=== PATIENT | female | born 1960 | race African-American/Black ===

== ENCOUNTER → 2017-06-30 | Outpatient (CLI) | payer OTHER ==
[2017-06-30 11:10] LABS: BASO % 0 % (0-3); EOS # 0.2 x10^3/uL (0.0-0.7); EOS % 2 % (0-3); HEMOGLOBIN 14.1 g/dL (12.0-15.5); LYMPH % 21 % (24-48); MEAN CORPUSCULAR HEMOGLOBIN 32 pg (25-35); MEAN CORPUSCULAR HGB CONC 34 g/dL (31-37); MEAN CORPUSCULAR VOLUME 93 fL (79-100); MONO # 0.4 x10^3/uL (0.0-1.1); MONO % 5 % (0-9); NEUT # 6.6 x10^3uL (1.8-7.7); NEUT % 71 % (31-73); PLATELET COUNT 215 x10^3/uL (140-400); RED BLOOD COUNT 4.43 x10^6/uL (3.50-5.40); RED CELL DISTRIBUTION WIDTH 14.1 % (11.5-14.5); WHITE BLOOD COUNT 9.3 x10^3/uL (4.0-11.0)
[2017-06-30 11:34] LABS: ALBUMIN 3.6 g/dL (3.4-5.0); ALBUMIN/GLOBULIN RATIO 0.9 (1.0-1.7); CALCIUM 8.6 mg/dL (8.5-10.1); CREATININE 0.7 mg/dL (0.6-1.0); GFR 105.1; POTASSIUM 3.8 mmol/L (3.5-5.1); TOTAL BILIRUBIN 0.5 mg/dL (0.2-1.0); TOTAL PROTEIN 7.4 g/dL (6.4-8.2)
--- NOTE | 2017-06-30 14:46 | RAD ---
EXAM: Lumbar spine, 5 views. HISTORY: Pain. COMPARISON: None. FINDINGS: Frontal, lateral, bilateral oblique and coned sacral views of the lumbar spine are obtained. There is minimal grade 1 anterolisthesis of L4 on L5, measuring 2 mm. There is minimal endplate remodeling and facet arthropathy at multiple levels. There is no fracture. IMPRESSION: 1. Minimal degenerative change within the lumbar spine area 2. No acute finding. Electronically signed by: Blank Jain MD (06/30/2017 2:43 PM) [facility]
[2017-07-01 02:08] LABS: HEMOGLOBIN A1C 7.1 % (4.8-5.6)
== END | disposition home or self-care (01) ==
LOC: DXRAD 10:24
PROVIDERS: ATTEND Family Medicine
DX: M12.88 Other specific arthropathies, not elsewhere classified, other specified site (principal); I10 Essential (primary) hypertension; E11.42 Type 2 diabetes mellitus with diabetic polyneuropathy
CPT/HCPCS: 36415; 72110; 80053; 83036; 84443; 85025

== ENCOUNTER 2018-09-07 11:48 | Emergency (ER) | payer OTHER ==
[2018-09-07 12:12] VITALS: BP 137/90
[2018-09-07] MEDS ORDERED: IPRATRPIUM/ALBUTEROL 0.5/2.5MG 3 ML NEBU. NEB ONE (12:30)
--- NOTE | 2018-09-07 12:32 | RAD ---
Chest, PA and Lateral: Technique: PA and lateral views of the chest were obtained. History: Cough, shortness of breath. Comparison: 10/16/2012. Findings: Mild cardiomegaly. Mild bibasilar lung airspace opacities likely atelectasis or infiltrates. Minimal prominent bilateral interstitial lung markings. IMPRESSION: 1. Minimal congestive changes. 2. Mild bibasilar lung airspace opacities likely atelectasis or infiltrates. Electronically signed by: Scotty Prajapati MD (09/07/2018 12:29 PM) [facility]
[2018-09-07] MEDS ORDERED: METH4TAB2 PO (13:02)
[2018-09-07] MEDS ORDERED: HYDR115S2 PO (13:02)
[2018-09-07] MEDS ORDERED: ALBU2.5V8 INH (13:02)
[2018-09-07] MEDS ORDERED: AZIT250T PO (13:02)
--- NOTE | 2018-09-07 13:02 | PHYS DOC ---
Past History Past Medical History: Diabetes, Hypertension Past Surgical History: Cholecystectomy Alcohol Use: None Drug Use: None Adult General Chief Complaint Chief Complaint: MULTIPLE COMPLAINTS HPI HPI Patient is a 58 year old female who presents with complaining of cough and sore throat and headache. Patient complaining of chronic headache for 2 months and was seen by her primary care physician and had a CT of head today with pending results. Patient complaining of nonproductive cough for 2 weeks with nasal congestion and sore throat and feeling pressure in her anterior side of her neck without fever, posterior neck pain, chest pain. Patient complaining of shortness of breath and muscle pain. Patient is a smoker. Patient states her diagnosed with pneumonia 2 weeks ago. Review of Systems Review of Systems Constitutional: Denies fever or chills [] Eyes: Denies change in visual acuity, redness, or eye pain [] HENT: Reports nasal congestion and sore throat Respiratory: Reports cough and shortness of breath Cardiovascular: No additional information not addressed in HPI [] GI: Denies abdominal pain, nausea, vomiting, bloody stools or diarrhea [] : Denies dysuria or hematuria [] Musculoskeletal: Denies back pain or joint pain [] Integument: Denies rash or skin lesions [] Neurologic: Reports headache, denies focal weakness or sensory changes [] Endocrine: Denies polyuria or polydipsia [] All other systems were reviewed and found to be within normal limits, except as documented in this note. Current Medications Current Medications Current Medications Medications (Trade) Dose Ordered Sig/Niurka Start Time Stop Time Status Last Admin Dose Admin Albuterol/ Ipratropium (Duoneb) 3 ml 1X ONCE 09/07/18 12:30 09/07/18 12:31 DC 09/07/18 12:46 3 ML Allergies Allergies Allergies Uncoded Allergies Type Severity Reaction Last Updated Verified contrast Allergy Mild 09/07/18 Physical Exam Physical Exam Constitutional: Well developed, well nourished, mild distress, non-toxic appearance. [] HENT: Normocephalic, atraumatic, bilateral external ears normal, oropharynx moist, no oral exudates, nose normal. [] Eyes: PERRLA, EOMI, conjunctiva normal, no discharge. [] Neck: Normal range of motion, no tenderness, supple, no stridor. [] Cardiovascular:Heart rate regular rhythm, no murmur [] Lungs & Thorax: Bilateral breath sounds clear to auscultation [] Abdomen: Bowel sounds normal, soft, no tenderness, no masses, no pulsatile masses. [] Skin: Warm, dry, no erythema, no rash. [] Back: No tenderness, no CVA tenderness. [] Extremities: No tenderness, no cyanosis, no clubbing, ROM intact, no edema. [] Neurologic: Alert and oriented X 3, normal motor function, normal sensory function, no focal deficits noted. [] Psychologic: Affect normal, judgement normal, mood normal. [] Current Patient Data Vital Signs Vital Signs Date Time Temp Pulse Resp B/P (MAP) Pulse Ox O2 Delivery O2 Flow Rate FiO2 09/07/18 12:47 96 Room Air 09/07/18 12:12 98.6 72 18 Lab Results Laboratory Tests Test 09/07/18 12:41 Glucose (Fingerstick) 74 mg/dL (70-99) EKG EKG [] Radiology/Procedures Radiology/[place] [address] IMAGING REPORT Signed PATIENT: OMID CHO ACCOUNT: [id number] : 1960 LOCATION: ER AGE: 58 SEX: F EXAM STATUS: REG ER ORD. PHYSICIAN: PATRICK HENDERSON MD REASON: cough and shortness of breath PROCEDURE: CHEST PA & LATERAL Chest, PA and Lateral: Technique: PA and lateral views of the chest were obtained. History: Cough, shortness of breath. Comparison: 10/16/2012. Findings: Mild cardiomegaly. Mild bibasilar lung airspace opacities likely atelectasis or infiltrates. Minimal prominent bilateral interstitial lung markings. IMPRESSION: 1. Minimal congestive changes. 2. Mild bibasilar lung airspace opacities likely atelectasis or infiltrates. Electronically signed by: Scotty Prajapati MD (09/07/2018 12:29 PM) [facility] DICTATED AND SIGNED BY: SCOTTY PRAJAPATI MD DATE: 09/07/18 [id number] CC: PATRICK HENDERSON MD; JAROD URBINA MD ~ Course & Med Decision Making Course & Med Decision Making Pertinent Labs and Imaging studies reviewed. (See chart for details) Evaluation of patient in ER showed 58-year-old female patient with complaining of URI symptoms for 2 weeks and chronic headache. Patient did was evaluated by her primary care physician for chronic headache and had a CT of her head. Also had Graves' disease without new changes. Patient had blood sugar of 74 and chest x-ray showed possible infiltration. Patient treated with DuoNeb in ER and felt better. Plan discharge patient home with diagnose of bronchitis and early pneumonia. Patient was advised to follow-up with her primary care physician for chronic headache and Graves' disease. Patient was advised to quit smoking. Dragon Disclaimer Dragon Disclaimer This electronic medical record was generated, in whole or in part, using a voice recognition dictation system. Departure Departure: Impression: Primary Impression: Bronchitis Additional Impressions: Tobacco abuse Tobacco abuse counseling Disposition: HOME, SELF-CARE (at 1301) Condition: IMPROVED Referrals: JAROD URBINA MD (PCP) Patient Instructions: Acute Bronchitis, Pneumonia, Adult, Smoking Cessation, Tips For Success Additional Instructions: Drink plenty of liquids Follow-up with your primary care physician in 3-5 days Return to ER if not getting better Scripts Azithromycin (ZITHROMAX) 250 Mg Tablet 1 PKG PO UD for infection, #1 PKG Prov: PATRICK HENDERSON MD 09/07/18 Hydrocodone/Chlorphen P-Stirex (Tussionex Pennkinetic Susp) 115 Ml Valery.er.12h 5 ML PO BID for cough and congestion, #60 ML Prov: PATRICK HENDERSON MD 09/07/18 Albuterol Sulfate (PROAIR HFA INHALER) 8.5 Gm Hfa.aer.ad 2 PUFF INH PRN Q6HRS PRN for SHORTNESS OF BREATH, #1 INHALER 0 Refills Prov: PATRICK HENDERSON MD 09/07/18 Methylprednisolone (MEDROL) 4 Mg Tab.ds.pk 1 PKG PO UD for inflammation, #1 PKG Prov: PATRICK HENDERSON MD 09/07/18 Problem Qualifiers PATRICK HENDERSON MD Sep 07, 2018 13:02
== END 2018-09-07 13:08 | disposition home or self-care (01) ==
LOC: ER 11:48
DX: J40 Bronchitis, not specified as acute or chronic (principal); E11.9 Type 2 diabetes mellitus without complications; I10 Essential (primary) hypertension; Z72.0 Tobacco use; Z71.6 Tobacco abuse counseling; Z91.041 Radiographic dye allergy status
CPT/HCPCS: 71046; 82947; 94640; 99285; J7620

== ENCOUNTER → 2018-09-07 | Outpatient (CLI) | payer OTHER ==
[~2018-09-07] MED LIST: ALBU2.5V8 INH; AZIT250T PO; HYDR115S2 PO; METH4TAB2 PO
--- NOTE | 2018-09-07 12:38 | RAD ---
CT HEAD INDICATION: Headache COMPARISON: 10/16/2012 Exposure: One or more of the following individualized dose reduction techniques were utilized for this examination: 1. Automated exposure control 2. Adjustment of the mA and/or kV according to patient size 3. Use of iterative reconstruction technique TECHNIQUE: 5 mm contiguous axial images were obtained from the skull base to the vertex in both bone and soft tissue algorithm. FINDINGS: No abnormal attenuation within the brain parenchyma. No evidence of acute intracranial hemorrhage. No extra-axial fluid collections. No mass effect or midline shift. Ventricular size is appropriate. Basal cisterns are patent. No fractures identified.Beltre-white differentiation is preserved.Globes and orbits are within normal limits. Paranasal sinuses and mastoid air cells are clear. IMPRESSION: No acute intracranial findings. Electronically signed by: Scotty Prajapati MD (09/07/2018 12:36 PM) [facility]
== END | disposition home or self-care (01) ==
LOC: CT 11:30
PROVIDERS: ATTEND Family Medicine
DX: R51 Headache (principal)
CPT/HCPCS: 70450

== ENCOUNTER → 2018-12-13 | Outpatient (CLI) | payer MEDICAID ==
--- NOTE | 2018-12-13 15:05 | RAD ---
DATE: 12/13/2018. EXAM: DIGITAL SCREEN BILAT W/CAD. HISTORY: Routine mammographic screening. COMPARISON: 03/21/2014. This study was interpreted with the benefit of Computerized Aided Detection (CAD). FINDINGS: Breast Density: SCATTERED The breast parenchyma shows scattered fibroglandular densities. Breast parenchyma level B.. A nodule laterally on the right has stable correlate study back in 2014. Scattered and coarse calcifications are benign. There are no suspicious masses, microcalcifications or architectural distortion. BI-RADS CATEGORY: 2 BENIGN FINDING(S). RECOMMENDED FOLLOW-UP: 12M 12 MONTH FOLLOW-UP. PQRS compliance statement: Patient information was entered into a reminder system with a target due date 12/14/2019 for the next mammogram. Mammography is a sensitive method for finding small breast cancers, but it does not detect them all and is not a substitute for careful clinical examination. A negative mammogram does not negate a clinically suspicious finding and should not result in delay in biopsying a clinically suspicious abnormality. "Our facility is accredited by the [employer] Mammography Program."
== END | disposition home or self-care (01) ==
LOC: MAMMO 13:14
PROVIDERS: ATTEND Family Medicine
DX: Z12.31 Encounter for screening mammogram for malignant neoplasm of breast (principal); N64.89 Other specified disorders of breast
CPT/HCPCS: 77067

== ENCOUNTER → 2019-01-05 | Outpatient (CLI) | payer MEDICAID ==
--- NOTE | 2019-01-05 10:06 | RAD ---
CHEST PA LATERAL History: Chest congestion and cough Findings: The cardiomediastinal silhouette is normal. Pulmonary vasculature is normal. The lungs are clear. No pleural effusion or pneumothorax is seen. There is no acute bone abnormality. Upper abdominal surgical clips are present. IMPRESSION: No acute cardiopulmonary process. Electronically signed by: Issa Muniz MD (01/05/2019 10:03 AM) [facility]
== END | disposition home or self-care (01) ==
LOC: PMG 09:37
PROVIDERS: ATTEND Physician Assistant Medical
DX: R09.89 Other specified symptoms and signs involving the circulatory and respiratory systems (principal)
CPT/HCPCS: 71046

== ENCOUNTER → 2020-06-12 | Outpatient (CLI) | payer MEDICAID ==
--- NOTE | 2020-06-12 18:04 | CARD ---
MR#: [id number] Date of Study: 06/12/2020 Ordering Physician: SHANAE BATES, Referring Physician: SHANAE BATES, Tech: Elena Chin MANGO APPROVED REPORT EXAM: Two-dimensional and M-mode echocardiogram with Doppler and color Doppler. Other Information Quality : Good INDICATION Hypertension/HCVD 2D DIMENSIONS RVDd2.7 (2.9-3.5cm)Left Atrium(2D)3.1 (1.6-4.0cm) IVSd1.0 (0.7-1.1cm)Aortic Root(2D)2.5 (2.0-3.7cm) LVDd4.1 (3.9-5.9cm)LVOT Diameter2.2 (1.8-2.4cm) PWd1.1 (0.7-1.1cm)LVDs2.5 (2.5-4.0cm) FS (%) 30.0 %SV51.1 ml LVEF(%)60.0 (>50%) Aortic Valve AoV Peak Everette.120.5cm/sAoV VTI22.8cm AO Peak GR.5.8mmHgLVOT Peak Everette.92.8cm/s LVOT VTI 16.79cmAO Mean GR.3mmHg SHAUN (VMAX)2.63hb0KVI (VTI)2.68cm2 Mitral Valve MV E Yjkfzbiq40.5cm/sMV E Peak Gr.4mmHg MV DECEL ADRN391srEM A Vhthwlhn89.7cm/s MV E Mean Gr.2mmHgE/A Ratio0.7 Tricuspid Valve TR P. Vgopnrmm858jw/sRAP JCCONUAC9xxNw TR Peak Gr.48hbIxVSDI07uxDy Pulmonary Vein S1 Xyxmyrzk83.0cm/sD2 Vrinkgiq66.0cm/s LEFT VENTRICLE The left ventricle is normal size. There is normal left ventricular wall thickness. The left ventricu lar systolic function is normal and the ejection fraction is within normal range. The Ejection Fracti on is 55-60%. There is normal LV segmental wall motion. Transmitral Doppler flow pattern is Grade I-a bnormal relaxation pattern. RIGHT VENTRICLE The right ventricle is normal size. The right ventricular systolic function is normal. ATRIA The left atrium size is normal. The right atrium size is normal. The interatrial septum is intact wit h no evidence for an atrial septal defect or patent foramen ovale as noted on 2-D or Doppler imaging. AORTIC VALVE The aortic valve is normal in structure and function. Doppler and Color Flow revealed no significant aortic regurgitation. There is no significant aortic valvular stenosis. MITRAL VALVE The mitral valve is calcified but opens well. There is no evidence of mitral valve prolapse. There is no mitral valve stenosis. Doppler and Color Flow revealed no mitral valve regurgitation noted. TRICUSPID VALVE The tricuspid valve is normal in structure and function. Doppler and Color Flow revealed trace tricus pid regurgitation. The PA pressure was estimated at 34 mmHg. There is no tricuspid valve stenosis. PULMONIC VALVE The pulmonic valve is not well visualized. Doppler and Color Flow revealed trace pulmonic valvular re gurgitation. There is no pulmonic valvular stenosis. GREAT VESSELS The aortic root is normal in size. The ascending aorta is normal in size. The IVC is normal in size a nd collapses >50% with inspiration. PERICARDIAL EFFUSION There is no evidence of significant pericardial effusion. Critical Notification Critical Value: No <Conclusion> The left ventricular systolic function is normal and the ejection fraction is within normal range. Th e Ejection Fraction is 55-60%. There is normal LV segmental wall motion. Doppler and Color Flow revealed trace tricuspid regurgitation. The PA pressure was estimated at 34 mm Hg. Signed by : Shanae Bates, Electronically Approved : 06/12/2020 18:03:44
== END ==
LOC: ECHO 08:27
PROVIDERS: ATTEND Internal Medicine Cardiovascular Disease
DX: I34.0 Nonrheumatic mitral (valve) insufficiency (principal)
CPT/HCPCS: 93306

== ENCOUNTER → 2020-06-12 | Outpatient (CLI) | payer MEDICAID ==
[~2020-06-12] MED LIST changes: +REGADENOSON 0.4 MG/5 ML DISP.SYRIN. IV ONE
--- NOTE | 2020-06-13 10:53 | RAD ---
MR#: [id number] Date of Study: 06/12/2020 Ordering Physician: SHANAE BATES, Referring Physician: KUSHAL HERNANDEZ Tech: RT Marsha (R) (N) APPROVED REPORT Test Type: Pharmacological Stress Nurse/Tech: AARON/RONN Test Indications: CHEST PAIN Cardiac History: No known cardiac Medications: SEE EHR Resting Heart Rate: 79 bpm Resting Blood Pressure: 135/77mmHg Pretest Chest Pain: No chest pain Pharm. Details Pharmacologic stress testing was performed using 0.4mg per 5ml of regadenoson given intravenously ove r 7-10 seconds. Stress Symptoms DYSPNEA POST EXERCISE Reason for Termination: Infusion complete Max HR: 87 bpm Max Blood Pressure: 142/77mmHg Blood Pressure response to exercise: Normal blood pressure response during stress. Heart Rate response to exercise: NORMAL Arrhythmia: No. ST Change: No. INTERPRETATION Stress EKG Conclusion: No evidence of stress induced EKG changes. Imaging Protocol IMAGE PROTOCOL: Rest Tc-99m/stress Tc-99m 1 day Rest: Stress: Viability: Radiopharm.Tc99m LxqldkcacSh88o Sestamibi Ycwe48wRb 10mCi Duration 15min. 15min. Img Date 06/12/2020 06/12/2020 Inj-Img Sqhq15qjs. 50min. Rest Admin Site:IV - Left WristAdministrator: RT Marsha (R)(N) Stress Admin Site: IV - Left WristAdministrator: RT Marsha (R)(N) STRESS DATA End Diast. Vol.74.0mlAv. Heart Rate79.0bpm End Syst. Vol.15.0mlCO Index BSA0.0L/min Myocardial Rgyh402.0gEject. Uolmrhmu90.0% Stress Rates Pk. Fill Rate2.75EDV/secLVtime Pk. Fill 174.43msec Pk. Empty Rate4.06ESV/secLVtime Pk. Zjoyq991.97msec 02/25 Pk. Fill1.45EDV/sec Stress Scores Regional WT0.00Summed WT1.00 Regional WM0.00Summed WM1.00 The rest and stress images show normal perfusion, normal contraction and thickening. LV Perf. Quant 17 Seg. SSS3.00 17 Seg. SRS0.00 17 Seg. SDS3.00 Stress Defect Extent (% LAD)0.00Rest Defect Extent (% LAD)0.00Rev. Defect Extent (% LAD)0.00 Stress Defect Extent (% LCX) 23.80Rest Defect Extent (% LCX)8.80Rev. Defect Extent (% LCX)6.30 Stress Defect Extent (% RCA)0.00Rest Defect Extent (% RCA)0.00Rev. Defect Extent (% RCA)0.00 Stress Defect Extent (% ELAINE)4.10Rest Defect Extent (% ELAINE)1.50Rev. Defect Extent (% ELAINE)1.10 Other Information Quality:Average Risk Assessment: Low Risk Conclusion 1. No evidence of EKG changes with stress testing. 2. Normal perfusion at stress/rest. 3. Low risk study. 4. EF > 60%. Signed by : Shanae Bates, Electronically Approved : 06/13/2020 10:52:48
== END ==
LOC: NM 08:05
PROVIDERS: ATTEND Internal Medicine Cardiovascular Disease
DX: I10 Essential (primary) hypertension (principal); R07.9 Chest pain, unspecified
CPT/HCPCS: 78452; 93017; A9500; J2785

== ENCOUNTER 2020-09-06 15:38 | Observation (INO) | payer MEDICAID ==
[~2020-09-06] VITALS: Ht 162.6 cm; Wt 91.6 kg
[~2020-09-06 15:38] MED LIST changes: -REGADENOSON 0.4 MG/5 ML DISP.SYRIN. IV ONE
[2020-09-06] MEDS ORDERED: ASPIRIN CHEWABLE 81 MG TABLET. PO ONE (16:15)
[2020-09-06] MEDS ORDERED: IV NORMAL SALINE 1,000ML 1,000 ML IV SCH (16:45)
[2020-09-06] MEDS: MORPHINE SULFATE 4 MG/ML DISP.SYRIN. IV/SQ PRN ×2 (16:47→18:15)
--- NOTE | 2020-09-06 16:53 | RAD ---
EXAMINATION: XR CHEST 1V CLINICAL HISTORY: Chest pain EXAM DATE/TIME: 09/06/2020 4:41 PM COMPARISON: 01/05/2019 FINDINGS: Lines, Tubes, and Devices: None. Cardiomediastinal Silhouette: Within normal limits. Lungs and Pleura: No evidence of focal airspace consolidation or pleural effusion. Pulmonary vasculat ure unremarkable. Bones and Soft Tissues: Degenerative changes of the thoracic spine. IMPRESSION: No evidence of acute cardiopulmonary abnormality or significant interval change. Electronically signed by: Rufus Maciel DO (09/06/2020 4:50 PM) [id number]
[2020-09-06 17:07] LABS: BASO % 0 % (0-3); EOS # 0.1 x10^3/uL (0.0-0.7); EOS % 2 % (0-3); HEMATOCRIT 38.6 % (36.0-47.0); LYMPH # 1.8 x10^3/uL (1.0-4.8); LYMPH % 30 % (24-48); MEAN CORPUSCULAR HEMOGLOBIN 30 pg (25-35); MEAN CORPUSCULAR HGB CONC 34 g/dL (31-37); MEAN CORPUSCULAR VOLUME 90 fL (79-100); MONO # 0.6 x10^3/uL (0.0-1.1); MONO % 11 % (0-9); NEUT # 3.5 x10^3uL (1.8-7.7); NEUT % 58 % (31-73); PLATELET COUNT 169 x10^3/uL (140-400); RED BLOOD COUNT 4.27 x10^6/uL (3.50-5.40); RED CELL DISTRIBUTION WIDTH 12.5 % (11.5-14.5); WHITE BLOOD COUNT 6.1 x10^3/uL (4.0-11.0)
[2020-09-06 17:26] LABS: ALBUMIN 3.4 g/dL (3.4-5.0); ALBUMIN/GLOBULIN RATIO 1.2 (1.0-1.7); ALK PHOS 130 U/L (46-116); ALT (SGPT) 120 U/L (14-59); ANION GAP 10 (6-14); AST (SGOT) 80 U/L (15-37); BLOOD UREA NITROGEN 29 mg/dL (7-20); BUN/CREATININE RATIO 29 (6-20); CALCIUM 9.2 mg/dL (8.5-10.1); CARBON DIOXIDE 26 mmol/L (21-32); CHLORIDE 103 mmol/L (98-107); GFR 68.7; LIPASE 31 U/L (73-393); MAGNESIUM 1.8 mg/dL (1.8-2.4); POTASSIUM 4.6 mmol/L (3.5-5.1); SODIUM 139 mmol/L (136-145); TOTAL BILIRUBIN 0.9 mg/dL (0.2-1.0); TOTAL PROTEIN 6.3 g/dL (6.4-8.2)
[2020-09-06 17:39] LABS: GLUCOSE 501 mg/dL (70-99)
[2020-09-06] MEDS ORDERED: IV NORMAL SALINE 1,000ML 1,000 ML IV ONE (17:45)
--- NOTE | 2020-09-06 18:21 | PHYS DOC ---
Past History Past Medical History: Diabetes, Hypertension (ROLANDO AMOS APRN) Past Surgical History: Cholecystectomy (ROLANDO AMOS APRN) Alcohol Use: None Drug Use: None (ROLANDO AMOS APRN) General Adult EDM: Chief Complaint: CHEST PAIN HPI: HPI: Patient is a 60-year-old female who presents with chest pain since last Thursday. Patient states that the pain has been coming and going. Patient describes pain as sharp, stabbing pain that also radiates to her neck. Patient does report shortness of breath, nausea and sweating when symptoms occur. Patient also reports that her blood sugar has been high for the last week. Patient states she has been taking her insulin as prescribed. Patient denies anything making pain worse or better. Patient states a couple years ago she had the same symptoms and was seen by a blow torch operator. Echo and stress test were negative at that time. Patient has a history of anxiety, diabetes, hypertension, COPD, hyperlipidemia. (ROLANDO AMOS APRN) Review of Systems: Review of Systems: Constitutional: Denies fever or chills Eyes: Denies change in visual acuity HENT: Denies nasal congestion or sore throat Respiratory: Denies cough. Reports shortness of breath Cardiovascular: Reports chest pain GI: Denies abdominal pain. Reports nausea and vomiting : Denies dysuria Musculoskeletal: Denies back pain or joint pain Integument: Denies rash Neurologic: Denies headache, focal weakness or sensory changes Endocrine: Denies polyuria or polydipsia Lymphatic: Denies swollen glands Psychiatric: Denies history of anxiety (ROLANDO AMOS APRN) Current Medications: Current Meds: Current Medications Medications (Trade) Dose Ordered Sig/Niurka Start Time Stop Time Status Last Admin Dose Admin Aspirin (Aspirin Chewable) 324 mg 1X ONCE 09/06/20 16:15 09/06/20 16:19 DC 09/06/20 16:46 324 MG Morphine Sulfate (Morphine 4mg Syringe) 4 mg PRN Q15MIN PRN 09/06/20 16:45 09/07/20 16:44 09/06/20 16:47 4 MG Sodium Chloride 1,000 ml @ 1,000 mls/hr 1X ONCE 09/06/20 17:45 09/06/20 18:44 (ROLANDO AMOS APRN) Allergies: Allergies: Allergies Uncoded Allergies Type Severity Reaction Last Updated Verified contrast Allergy Mild 09/07/18 (ROLANDO AMOS [employer] M[employer]ER) Physical Exam: PE: Constitutional: Well developed, well nourished, no acute distress, non-toxic appearance. [] HENT: Normocephalic, atraumatic, bilateral external ears normal, oropharynx moist, no oral exudates, nose normal. [] Eyes: PERRLA, EOMI, conjunctiva normal, no discharge. [] Neck: Normal range of motion, no tenderness, supple, no stridor. [] Cardiovascular:Heart rate regular rhythm, no murmur [] Lungs & Thorax: Bilateral breath sounds clear to auscultation [] Abdomen: Bowel sounds normal, soft, no tenderness, no masses, no pulsatile masses. [] Skin: Warm, dry, no erythema, no rash. [] Back: No tenderness, no CVA tenderness. [] Extremities: No tenderness, no cyanosis, no clubbing, ROM intact, no edema. [] Neurologic: Alert and oriented X 3, normal motor function, normal sensory function, no focal deficits noted. [] Psychologic: Patient appears anxious and tearful (ROLANDO AMOS [employer]) Current Patient Data: Labs: Laboratory Tests Test 09/06/20 16:07 White Blood Count 6.1 x10^3/uL (4.0-11.0) Red Blood Count 4.27 x10^6/uL (3.50-5.40) Hemoglobin 13.0 g/dL (12.0-15.5) Hematocrit 38.6 % (36.0-47.0) Mean Corpuscular Volume 90 fL (79-100) Mean Corpuscular Hemoglobin 30 pg (25-35) Mean Corpuscular Hemoglobin Concent 34 g/dL (31-37) Red Cell Distribution Width 12.5 % (11.5-14.5) Platelet Count 169 x10^3/uL (140-400) Neutrophils (%) (Auto) 58 % (31-73) Lymphocytes (%) (Auto) 30 % (24-48) Monocytes (%) (Auto) 11 % (0-9) H Eosinophils (%) (Auto) 2 % (0-3) Basophils (%) (Auto) 0 % (0-3) Neutrophils # (Auto) 3.5 x10^3uL (1.8-7.7) Lymphocytes # (Auto) 1.8 x10^3/uL (1.0-4.8) Monocytes # (Auto) 0.6 x10^3/uL (0.0-1.1) Eosinophils # (Auto) 0.1 x10^3/uL (0.0-0.7) Basophils # (Auto) 0.0 x10^3/uL (0.0-0.2) Sodium Level 139 mmol/L (136-145) Potassium Level 4.6 mmol/L (3.5-5.1) Chloride Level 103 mmol/L (98-107) Carbon Dioxide Level 26 mmol/L (21-32) Anion Gap 10 (6-14) Blood Urea Nitrogen 29 mg/dL (7-20) H Creatinine 1.0 mg/dL (0.6-1.0) Estimated GFR (Cockcroft-Gault) 68.7 BUN/Creatinine Ratio 29 (6-20) H Glucose Level 501 mg/dL (70-99) *H Calcium Level 9.2 mg/dL (8.5-10.1) Magnesium Level 1.8 mg/dL (1.8-2.4) Total Bilirubin 0.9 mg/dL (0.2-1.0) Aspartate Amino Transferase (AST) 80 U/L (15-37) H Alanine Aminotransferase (ALT) 120 U/L (14-59) H Alkaline Phosphatase 130 U/L (46-116) H Creatine Kinase 57 U/L (26-192) Creatine Kinase MB (Mass) < 0.5 ng/mL (0.0-3.6) Creatine Kinase MB Relative Index 0.9 % (0-4) Troponin I Quantitative < 0.017 ng/mL (0-0.055) JA-Kxh-T-Type Natriuretic Peptide 114 pg/mL (0-124) Total Protein 6.3 g/dL (6.4-8.2) L Albumin 3.4 g/dL (3.4-5.0) Albumin/Globulin Ratio 1.2 (1.0-1.7) Lipase 31 U/L (73-393) L Vital Signs: Vital Signs Date Time Temp Pulse Resp B/P (MAP) Pulse Ox O2 Delivery O2 Flow Rate FiO2 09/06/20 16:49 98 16 116/65 (82) 98 Room Air 09/06/20 15:54 98.4 (ROLANDO AMOS APRN) EKG: EKG: Sinus tachycardia. Heart rate [address] elevation. Read by Dr. Mosher. [] (ROLANDO AMOS APRN) Radiology/Procedures: Radiology/Procedures: [] (ROLANDO AMOS APRN) Heart Score: C/O Chest Pain: Yes HEART Score for Chest Pain: HEART Score for Chest Pain Response (Comments) Value History Moderately Suspicious 1 ECG Normal 0 Age >45 - < 65 1 Risk Factors >3 Risk Factors or Hx CAD 2 Total 4 Risk Factors: Risk Factors: DM, Current or recent (<one month) smoker, HTN, HLP, family history of CAD, obesity. Risk Scores: Score 0 - 3: 2.5% MACE over next 6 weeks - Discharge Home Score 4 - 6: 20.3% MACE over next 6 weeks - Admit for Clinical Observation Score 7 - 10: 72.7% MACE over next 6 weeks - Early Invasive Strategies (ROLANDO AMOS APRN) Course & Med Decision Making: Course & Med Decision Making Pertinent Labs and Imaging studies reviewed. (See chart for details) [] 60-year-old female presents with chest pain since last Thursday. Pain has been intermittent. Pain is described as a sharp and stabbing pain that radiates to her neck. Patient is also reported some shortness of breath along with nausea and vomiting. Patient was given 4 mg of morphine, 4 mg of Zofran, and 324 of aspirin. EKG showed sinus tachycardia, 102 bpm. Troponin is negative. Heart score of 4. Blood sugar 507. Anion gap is 10. Patient states that she has been taking her insulin as prescribed but having issues this week with it being elevated. Patient given 2 L of normal saline bolus. Patient blood sugar decreased to 422 on reassessment. Discussed results with patient and explained that she would need to be admitted for observation . Patient is very tearful and anxious but agrees with admission plan. Patient has a history of anxiety and normally takes lorazepam at home. Patient denies needing anything at this time. I spoke with Dr. Barlow who will accepting patient for observation for chest pain and hyperglycemia. Patient given GI cocktail, 4 mg of Zofran, 1 of Ativan. Patient is still tearful and anxious. (ROLANDO AMOS APRN) Dragon Disclaimer: Dragon Disclaimer: This electronic medical record was generated, in whole or in part, using a voice recognition dictation system. (ROLANDO AMOS APRN) Departure Departure: Impression: Primary Impression: Chest pain Qualified Codes: R07.89 - Other chest pain Additional Impression: Hyperglycemia Disposition: ADMITTED INPATIENT Admitting Physician: Susan Barlow (ROLANDO AMOS APRN) Condition: GOOD Referrals: JAROD URBINA MD (PCP) Scripts Methimazole (TAPAZOLE) 10 Mg Tablet 1 TAB PO BID PRN for HYROTOXICOSIS for 30 Days, #60 TAB 5 Refills Prov: SUSAN BARLOW MD 09/08/20 Attending Signature Attending Signature I have participated in the care of this patient and I have reviewed and agree with all pertinent clinical information above including history, exam, and recommendations. (MARVIN VELA MD) ROLANDO AMOS APRN Sep 06, 2020 18:20 MARVIN VELA MD Sep 13, 2020 06:52
[2020-09-06 18:39] LABS: BARBITURATES NEG (NEG); BENZODIAZEPINES NEG (NEG); CANNABINOIDS NEG (NEG); COCAINE NEG (NEG); METHADONE NEG (NEG); OPIATES POS (NEG); PHENCYCLIDINE NEG (NEG)
[2020-09-06 18:51] LABS: AMPHETAMINE/METHAMPHETAMINE NEG (NEG)
[2020-09-06 19:13] LABS: BACTERIA,URINE 0 /HPF (0-FEW); BILIRUBIN,URINE NEG (NEG); CLARITY,URINE CLEAR; COLOR,URINE YELLOW; GLUCOSE,URINE >=1000 mg/dL (NEG); NITRITE,URINE NEG (NEG); RBC,URINE 0 /HPF (0-2); SQUAMOUS EPITHELIAL CELL,UR OCC /LPF; UROBILINOGEN,URINE 0.2 mg/dL (0.2 mg/dL); WBC,URINE RARE /HPF (0-4)
[2020-09-06] MEDS ORDERED: ONDANSETRON PF 4 MG/2 ML VIAL. IVP ONE (20:15)
[2020-09-06] MEDS ORDERED: LIDO:MAALOX 1:1 20 ML SINGLE DOSE. PO ONE (20:15)
[2020-09-06] MEDS ORDERED: DEXTROSE 50% 25 GM / 50ML DISP.SYRIN. IV PRN (21:15)
[2020-09-06] MEDS ORDERED: LORazepam 0.5 MG TABLET PO PRN (21:15)
[2020-09-06 21:28] VITALS: BP 115/71
[2020-09-06] MEDS ORDERED: INSULIN GLARGINE SYRINGE. SQ SCH (21:30)
[2020-09-06] MEDS ORDERED: INSULIN GLARGINE SYRINGE. SQ ONE (21:45)
[2020-09-06] MEDS: MORPHINE SULFATE 4 MG/ML DISP.SYRIN. IV PRN (21:52)
[2020-09-06] MEDS: ZOLPIDEM 5 MG TABLET. PO PRN (22:00)
--- NOTE | 2020-09-06 23:30 | NUR ---
PT ADMITTED RM 111 VIA EMS ACCOMPANIED BY ER STAFF. PT AMBULATED FROM GURNEY TO BED INDEPENDENTLY. PT AOX4. PT HAD COMPLAINTS OF PAIN RATING 7/10 ON NUMERIC LEVEL. PT IS UNABLE TO PROVIDE HOME MEDICATION LIST AT THIS TIME. PER PT [facility] WILL BE CALLED TO OBTAIN MEDICATION LIST. DR SHERIDAN CALLED. ORDERS RECEIVED. PT RESTING COMFORTABLY IN BED W/ CALL LIGHT IN REACH.
[2020-09-07] MEDS: MORPHINE SULFATE 4 MG/ML DISP.SYRIN. IV PRN ×5 (02:43→22:07)
[2020-09-07] MEDS: ONDANSETRON PF 4 MG/2 ML VIAL. IVP PRN ×2 (02:43→18:13)
[2020-09-07] MEDS ORDERED: ONDANSETRON PF 4 MG/2 ML VIAL. IVP PRN (02:45)
[2020-09-07 05:57] VITALS: BP 134/75
--- NOTE | 2020-09-07 06:40 | EKG ---
[address] [address] Test Date: 2020-09-06 Test Time: 15:45:24 Pat Name: OMID CHO Department: Room: Gender: F Communications Field Technician: : 1960 Requested By: ROLANDO AMOS Order Number: [id number] Reading MD: Measurements Intervals [place] Rate: 102 P: 36 UT: 158 QRS: -26 QRSD: 82 T: 41 QT: 348 QTc: 458 Interpretive Statements SINUS TACHYCARDIA LEFTWARD AXIS OTHERWISE NORMAL ECG RI6.02 No previous ECG available for comparison
--- NOTE | 2020-09-07 06:49 | EKG ---
[address] [address] Test Date: 2020-09-06 Test Time: 17:13:18 Pat Name: OMID CHO Department: Room: Gender: F Chaperone: : 1960 Requested By: ROLANDO AMOS Order Number: [id number] Reading MD: Measurements Intervals [place] Rate: 75 P: 38 [place]: 158 QRS: -13 QRSD: 98 T: 5 QT: 392 QTc: 440 Interpretive Statements SINUS RHYTHM LEFTWARD AXIS OTHERWISE NORMAL ECG RI6.01 No previous ECG available for comparison
[2020-09-07] MEDS: INSULIN LISPRO 300 UNITS/3 ML VIAL. SQ SCH ×3 (08:33→17:18)
[2020-09-07 10:47] VITALS: BP 102/65
[2020-09-07] MEDS: ACETAMINOPHEN 325 MG TABLET PO PRN (11:35)
[2020-09-07] MEDS ORDERED: PANT20TA4 PO (11:49)
[2020-09-07] MEDS ORDERED: PROC10TA2 PO (11:49)
[2020-09-07] MEDS ORDERED: LORA-434 PO (11:49)
[2020-09-07] MEDS ORDERED: IBUP800T19 PO (11:49)
[2020-09-07] MEDS ORDERED: ZOLP5TAB5 PO (11:49)
[2020-09-07] MEDS ORDERED: AMLO-187 PO (11:49)
[2020-09-07] MEDS ORDERED: CHOL500021 PO (11:49)
[2020-09-07] MEDS ORDERED: ATEN100T PO (11:49)
[2020-09-07] MEDS ORDERED: ALBU6.7H8 INH (11:49)
[2020-09-07] MEDS ORDERED: LOSA100T14 PO (11:49)
[2020-09-07] MEDS ORDERED: ATOR20TA58 PO (11:49)
[2020-09-07] MEDS ORDERED: INSU100I46 SQ (11:49)
[2020-09-07] MEDS ORDERED: INSU100I11 SQ (11:49)
[2020-09-07] MEDS ORDERED: TRAM50TA PO (11:49)
--- NOTE | 2020-09-07 11:59 | NUR ---
nursing note pt unsure of all her meds, called kelle, meds entered per kelle, pt given list from kelle and verified with pt, pt states "yes, that is correct". meds are up to date per pt/kelle. sharlene melara.
[2020-09-07] MEDS ORDERED: ALBUTEROL SULFATE 8GM INHALER. INH PRN (12:15)
[2020-09-07] MEDS ORDERED: traMADol 50 MG TABLET PO PRN ×2 (12:15→13:30)
[2020-09-07] MEDS ORDERED: LORazepam 1 MG TABLET PO PRN (12:15)
[2020-09-07] MEDS ORDERED: IBUPROFEN 800 MG TABLET. PO PRN (12:15)
[2020-09-07 12:36] LABS: HEMATOCRIT 36.7 % (36.0-47.0); HEMOGLOBIN 12.3 g/dL (12.0-15.5); RED BLOOD COUNT 4.09 x10^6/uL (3.50-5.40); RED CELL DISTRIBUTION WIDTH 12.2 % (11.5-14.5); WHITE BLOOD COUNT 6.9 x10^3/uL (4.0-11.0)
[2020-09-07] MEDS ORDERED: INSU100I13 SQ (12:41)
[2020-09-07] MEDS ORDERED: ALBUTEROL SULFATE 2.5 MG/3 ML NEBU. NEB PRN (12:45)
[2020-09-07 12:58] LABS: ALBUMIN/GLOBULIN RATIO 1.1 (1.0-1.7); C REACTIVE PROTEIN 2.2 mg/L (0-3.3); CALCIUM 8.8 mg/dL (8.5-10.1); CREATININE 0.6 mg/dL (0.6-1.0); GFR 123.8; POTASSIUM 4.4 mmol/L (3.5-5.1); TOTAL BILIRUBIN 0.6 mg/dL (0.2-1.0); TOTAL PROTEIN 5.8 g/dL (6.4-8.2)
[2020-09-07] MEDS: amLODIPine BESYLATE 10 MG TABLET PO SCH (13:00)
[2020-09-07] MEDS: LOSARTAN 50 MG TABLET. PO SCH (13:00)
[2020-09-07] MEDS: ATENOLOL 50 MG TABLET PO SCH (13:13)
[2020-09-07] MEDS: ATORVASTATIN CALCIUM 20 MG TABLET PO SCH (13:13)
--- NOTE | 2020-09-07 14:03 | HP ---
HISTORY OF PRESENT ILLNESS: The patient is a 60-year-old -Hungarian female, who presented to the Emergency Room of [facility] with generalized weakness started last Thursday. She also complained of a chest pain, mostly on the left side that comes and goes, she rated about 9/10 associated with some nausea and diaphoresis, but no radiation and no shortness of breath. She also complained of nausea and vomiting, diarrhea and abdominal pain, and also has some fever this morning up to 102. She also stated that her blood sugar has been fully controlled despite the fact that she has been on the same dose of Lantus 30 units twice a day and Humalog 5 units three times before meals. The patient stated that exertion in particular is not making her chest pain worse as she has been very weak, unable to do things that she used to do before. She was evaluated in the Emergency Room and has had lab work and imaging studies. Her lab work other than marked elevated blood sugar and elevated liver enzymes, were normal. Her PT, INR and APTT were normal. Urinalysis was essentially unremarkable and her toxic screen was positive for opiates, but negative for all other medications. Her chest x-ray showed her cardiomediastinal silhouette within normal limits. Lungs and pleura, no evidence of focal airspace consolidation, pleural effusion, pulmonary vasculature is unremarkable, bone and soft tissue has degenerative changes at the thoracic spine. Her first set of cardiac enzymes showed troponin to be less than 0.017. The patient was admitted to do two more sets of cardiac enzymes, check fasting lipid profile and to consult the fire equipment operator. PAST MEDICAL HISTORY: Her past medical history is significant for type 2 diabetes mellitus; hypertension; hyperlipidemia; chronic obstructive pulmonary disease; Graves' disease, treated with methimazole and she was followed by Endocrinology team at ____, and her methimazole was discontinued 2 years ago. She also has generalized osteoarthritis. PAST SURGICAL HISTORY: Significant for cholecystectomy. ALLERGIES: SHE IS ALLERGIC TO IODINATED CONTRAST AND DYE. MEDICATIONS: She is on Lantus insulin 30 units twice a day and Humalog insulin 5 units three times a day before meals. We are calling [facility] to find out her other medications. FAMILY HISTORY: She has five sisters and two brothers, they are generally healthy. Her father at age of 75 because of the chronic lymphatic leukemia and mother with complications of end-stage renal disease. SOCIAL HISTORY: She is , has no children. Smokes about half a pack a day. Does not drink alcohol or use any drugs. REVIEW OF SYSTEMS: The patient denied any blurring of vision, cataract, glaucoma or macular degeneration. Denied any earache, tinnitus or sensorineural deafness. Denied any nosebleed, stuffy nose or postnasal drip. Denied any sore throat, sore tongue, toothache, hoarseness of voice or difficulty swallowing. Did complain of nausea and vomiting. Did complain also of diarrhea, but denied any hematemesis, melena or hematochezia. Denied any dysuria, frequency or hematuria. Did complain of a chest pain, but denied any shortness of breath. Denied any orthopnea or paroxysmal nocturnal dyspnea. Before last Thursday, the patient was believed to be without any assistance or assistive devices. PHYSICAL EXAMINATION: GENERAL: On arrival to the Emergency Room, there was no pallor, jaundice, cyanosis, or thyromegaly. No jugular venous distention. No limb edema. VITAL SIGNS: Her heart rate was 100, blood pressure is 107/55, temperature was 98.4, respiratory rate 16, and oxygen saturation was 100% on room air. HEAD, EYES, EARS, NOSE, AND THROAT: Normocephalic, atraumatic. NECK: Supple. HEART: Showed normal first and second heart sounds, no gallop, rub or murmur. CHEST: Clear to auscultation, no crepitation or rhonchi. ABDOMEN: Distended, soft, nontender. NEUROLOGIC: She is awake, alert, responding appropriately. All her cranial nerves are intact. She moves all extremities without difficulty. She ambulates without assistance or assistive devices. LABORATORY DATA: Her lab work on arrival showed a white cell count 6100, hemoglobin 13, hematocrit 38, MCV 90 and platelet count of 169,000 with normal manual differential. Her chemistry showed a serum sodium 139, potassium 4.6, chloride 103, bicarbonate 26, anion gap of 10, BUN 29, creatinine of 1. Estimated GFR was 68.7. Her blood sugar was 500. Her calcium was 9.2, magnesium was 1.8. Total bilirubin is normal. AST, ALT, alkaline phosphatase are all elevated. Her CK was 57. First set of cardiac enzymes showed troponin to be less than 0.017. Her brain natriuretic peptide was only 114. Total protein was 6.3, albumin was 3.4 and lipase was 31. Her prothrombin time, INR and APTT were all normal. Urinalysis showed urine was yellow, clear with a pH of 5.5 and ____. The urine was negative for protein. There was large amounts of glucose. The urine was negative for ketones, blood, nitrites and leukocyte esterase. There are no rbc's, no wbc's, and no bacteria. Her toxic screen was positive for opiates, but negative for methadone, barbiturates, phencyclidine, amphetamine, methamphetamine, benzodiazepine, cocaine and cannabinoids. Her chest x-ray show that there is no evidence of acute cardiopulmonary abnormality or significant interval change. ASSESSMENT AND PLAN: The patient was admitted to do two more sets of cardiac enzymes, although the chest pain seems somewhat atypical. We will check her fasting lipid profile, consult the fire equipment operator. I would also contact her indigo vat tender cloth and contact also Dr. Chery to see if the lab work done there were become available as I believe that he probably have this check there for thyroid function test. SAMINA/DEE/DEQUAN DR: SAMINA/shaila TID: [id number]
[2020-09-07 15:36] VITALS: BP 122/70
[2020-09-07 19:36] VITALS: BP 123/75
[2020-09-07] MEDS ORDERED: ZOLPIDEM 5 MG TABLET. PO SCH (21:00)
[2020-09-07] MEDS ORDERED: PROCHLORPERAZINE 5 MG TABLET. PO SCH (21:00)
[2020-09-07] MEDS: INSULIN GLARGINE SYRINGE. SQ SCH (21:36)
[2020-09-07] MEDS: ZOLPIDEM 5 MG TABLET. PO PRN (23:12)
[2020-09-07 23:30] VITALS: BP 137/78
[2020-09-08] MEDS: ONDANSETRON PF 4 MG/2 ML VIAL. IVP PRN ×3 (00:43→12:14)
--- NOTE | 2020-09-08 05:39 | NUR ---
Pt slept off and on last night. She was feeling warm toward the beginning of the shift, then had chills about 2130. A warm blanket was given. She was teary and in pain and requested morphine when next dose was available. About an hour later pt awoke vomiting, multiple times. Zofran was given. Pt rested the remainder of the night.
[2020-09-08 06:21] VITALS: BP 110/68
[2020-09-08] MEDS ORDERED: PANTOPRAZOLE 40 MG TABLET. PO SCH (07:30)
[2020-09-08] MEDS: ATORVASTATIN CALCIUM 20 MG TABLET PO SCH (08:00)
[2020-09-08] MEDS: ATENOLOL 50 MG TABLET PO SCH (08:00)
[2020-09-08] MEDS: LOSARTAN 50 MG TABLET. PO SCH (08:01)
[2020-09-08] MEDS: amLODIPine BESYLATE 10 MG TABLET PO SCH (08:01)
[2020-09-08] MEDS: MORPHINE SULFATE 4 MG/ML DISP.SYRIN. IV PRN ×2 (08:01→12:16)
[2020-09-08] MEDS: ACETAMINOPHEN 325 MG TABLET PO PRN (08:03)
[2020-09-08] MEDS: INSULIN LISPRO 300 UNITS/3 ML VIAL. SQ SCH ×3 (08:11→17:44)
[2020-09-08] MEDS: INSULIN GLARGINE SYRINGE. SQ SCH (09:00)
[2020-09-08 10:41] VITALS: BP 122/76
[2020-09-08 14:18] VITALS: BP 120/66
--- NOTE | 2020-09-08 15:26 | RAD ---
CT ABDOMEN+PELVIS WO History: Severe right flank pain. Comparison: None. Technique: Noncontrast CT of the abdomen and pelvis. Findings: Bibasilar atelectasis. Normal heart size. No pericardial or pleural effusion. The liver is unremarkable. Cholecystectomy changes with mild prominence of the common bile duct, 1 cm . Atrophy of the pancreas. Normal spleen. 1.3 cm nodule in the medial limb of the left adrenal consis tent with adenoma. No nephrolithiasis or hydronephrosis. Trace bilateral perinephric fat stranding. No ureterolithiasis. The bladder is unremarkable. Stomach, small bowel, appendix, and colon are unremarkable. No abdominal pelvic adenopathy. Mild aortic calcification. Uterus and adnexa are unremarkable. No osiris e fluid. Soft tissues are unremarkable. No acute osseous abnormalities. Impression: 1. No acute findings in the abdomen and pelvis. 2. Left adrenal 1.3 cm adenoma. Recommend clinical and laboratory correlation for functioning adenom a. ------ Exposure: One or more of the following individualized dose reduction techniques were utilized for thi s examination: 1. Automated exposure control 2. Adjustment of the mA and/or kV according to patient size 3. Use of iterative reconstruction technique. Electronically signed by: Josue Keating MD (09/08/2020 3:24 PM) [id number]
[2020-09-08 16:52] LABS: BASO % 0 % (0-3); EOS # 0.1 x10^3/uL (0.0-0.7); EOS % 2 % (0-3); HEMATOCRIT 37.1 % (36.0-47.0); HEMOGLOBIN 12.6 g/dL (12.0-15.5); LYMPH # 2.1 x10^3/uL (1.0-4.8); LYMPH % 35 % (24-48); MEAN CORPUSCULAR HEMOGLOBIN 30 pg (25-35); MEAN CORPUSCULAR HGB CONC 34 g/dL (31-37); MEAN CORPUSCULAR VOLUME 89 fL (79-100); MONO # 0.6 x10^3/uL (0.0-1.1); MONO % 10 % (0-9); NEUT # 3.2 x10^3uL (1.8-7.7); NEUT % 53 % (31-73); PLATELET COUNT 137 x10^3/uL (140-400); RED BLOOD COUNT 4.19 x10^6/uL (3.50-5.40); RED CELL DISTRIBUTION WIDTH 12.3 % (11.5-14.5)
[2020-09-08 17:10] LABS: CALCIUM 9.1 mg/dL (8.5-10.1); CREATININE 0.6 mg/dL (0.6-1.0); GFR 123.8; POTASSIUM 4.4 mmol/L (3.5-5.1)
[2020-09-08 17:18] LABS: ALBUMIN/GLOBULIN RATIO 0.9 (1.0-1.7); TOTAL PROTEIN 6.4 g/dL (6.4-8.2)
[2020-09-08] MEDS ORDERED: INSULIN LISPRO 300 UNITS/3 ML VIAL. SQ ONE (18:00)
[2020-09-08] MEDS ORDERED: METH-184 PO (18:25)
--- NOTE | 2020-09-08 18:36 | NUR ---
Discharge Note: OMID CHO Discharge instructions and discharge home medications reviewed with Patient and a copy given. All questions have been answered and understanding verbalized. The following instructions and handouts were given: Discontinued lines and drains: Peripheral IV intact. Patient discharged to Home or Self Care with nursing staff via Wheelchair
--- NOTE | 2020-09-09 02:48 | DS ---
DATE OF DISCHARGE: 09/08/2020 HOSPITAL COURSE: The patient is a 60-year-old -[place]an female patient who was admitted through the Emergency Room with a complaint of generalized weakness, chest pain. She also has some nausea, diaphoresis. She did complain of some nausea, vomiting. Her temperature was up to 102. Her blood sugar has not been well controlled despite the fact that she has been on the same dose for Lantus 30 units twice a day and Humalog 5 units 3 times before. The chest pain is not worsened by exertion. She apparently has been complaining ____ with these complaints and was seen by her primary care physician who ordered some lab work and I contacted Dr. Chery's office and basically all her lab works were within normal limit except slightly elevated liver enzymes; however, her T3, T4, and free T4 are elevated and TSH is almost undetectable. I spoke with her assembly manager at [facility] who recommended starting her methimazole 10 mg twice a day as she is known to have thyrotoxicosis due to Graves' disease and she has been on antithyroid medication for long time. They were discontinued about 2 years ago. She has also lost weight and I explained to the patient that her symptoms will take some time to improve and that she should start taking her antithyroid medication. Her blood sugar was not suboptimally controlled and she need to talk to her primary care physician and the assembly manager also to adjust her insulin. PHYSICAL EXAMINATION: GENERAL: When I saw her this afternoon, she was sitting on the edge of the bed comfortably, in no apparent distress. There was no pallor, jaundice, cyanosis or thyromegaly. No jugular venous distention. No limb edema. VITAL SIGNS: Her heart rate was 97, blood pressure is 120/66, temperature 98.5, respiratory rate was 17 and oxygen saturation was 94%. HEAD, EYES, EARS, NOSE, AND THROAT: Normocephalic, atraumatic. NECK: Supple. HEART: Showed normal first and second heart sounds. No gallop, rub or murmur. CHEST: Clear to auscultation. No crepitation or rhonchi. ABDOMEN: Distended. Soft, nontender. NEUROLOGIC: She was grossly intact. LABORATORY DATA: This afternoon showed a white cell count of 6000, hemoglobin 13, hematocrit 37, MCV 89 and platelet count of 137,000. Her sedimentation rate was only 32 mm per hour. Her chemistry showed a serum sodium 141, potassium 4.4, chloride 105, bicarbonate 27, anion gap of 9, BUN 18, creatinine 0.6. Estimated GFR was ____ mL per minute. Her glucose was still high at 321. Calcium was 9.1. Total bilirubin and alkaline phosphatase are normal. AST and ALT are slightly elevated, but much lower than previous values. Her total protein is 6.4, albumin 3. DISCHARGE MEDICATIONS: The patient was discharged home to continue on methimazole for Tapazole 10 mg twice a day, albuterol sulfate 2 puffs every 6 hours as needed, amlodipine besylate 10 mg once a day, atenolol 100 mg once a day, atorvastatin calcium 20 mg at bedtime, cholecalciferol vitamin D3 50,000 units once a week, ibuprofen 800 mg 3 times a day, Lantus insulin 30 units twice a day and Humalog insulin 5 units 3 times a day, lorazepam 1 mg 3 times a day, losartan potassium 100 mg daily, Protonix 20 mg once a day, prochlorperazine maleate 10 mg at bedtime, tramadol 50 mg 4 times a day and Ambien 5 mg at bedtime. She was given a prescription for methimazole 10 mg twice a day and also oxycodone immediate release 5 mg every 6 hours for a week. Was advised to make an appointment with her assembly manager and primary care physician. FINAL DISCHARGE DIAGNOSES: Thyrotoxicosis due to Graves' disease, type 2 diabetes that is suboptimally controlled, hypertension, hyperlipidemia, chronic obstructive pulmonary disease, generalized osteoarthritis. JANE/JORI DR: Leonard TID: [id number]
[2020-09-11] MEDS ORDERED: CHOLECALCIFEROL (VITAMIN D3) 50,000 UNIT CAPSULE PO SCH (09:00)
== END 2020-09-08 18:38 | disposition home or self-care (01) ==
LOC: ER 15:38 → 1 SOUTH 19:35 → ER 20:20
PROVIDERS: ADMIT Internal Medicine; ATTEND Internal Medicine
DX: E05.00 Thyrotoxicosis with diffuse goiter without thyrotoxic crisis or storm (principal); E11.65 Type 2 diabetes mellitus with hyperglycemia; E78.5 Hyperlipidemia, unspecified; J44.9 Chronic obstructive pulmonary disease, unspecified; M15.9 Polyosteoarthritis, unspecified; F17.210 Nicotine dependence, cigarettes, uncomplicated; I10 Essential (primary) hypertension; Z79.4 Long term (current) use of insulin; Z80.6 Family history of leukemia; Z79.899 Other long term (current) drug therapy
CPT/HCPCS: 36415; 71045; 74176; 80053; 80061; 80307; 81001; 82550; 82553; 82947; 83690; 83735; 83880; 84443; 84484; 85025; 85027; 85610; 85651; 85730; 86140; 93005; 96361; 96372; 96374; 96375; 96376; 99285; G0378; J1815; J2060; J2270; J2405; J7030; Q0164; G0379

== ENCOUNTER → 2021-04-30 | Outpatient (CLI) | payer MEDICAID ==
[2020-10-14 09:30] VITALS: BP 138/72
[~2021-04-30] MED LIST changes: +ALBU6.7H8 INH; +AMLO-187 PO; +ATEN100T PO; +ATOR20TA58 PO; +CHOL500021 PO; +FURO20TA3 PO; +IBUP800T19 PO; +INSU100I11 SQ; +INSU100I13 SQ; +INSU100I46 SQ; +LORA-254 PO; +LORA-434 PO; +LOSA100T14 PO; +METH-184 PO; +PANT20TA4 PO; +PROC10TA2 PO; +TRAM50TA PO; +ZOLP5TAB5 PO
[2021-05-01 15:52] LABS: FREE T4 0.4 ng/dL (0.76-1.46); THYROID STIM HORMONE (TSH) 0.81 uIU/mL (0.358-3.740)
== END ==
LOC: LAB 13:03
PROVIDERS: ATTEND Internal Medicine Endocrinology, Diabetes & Metabolism
DX: R06.2 Wheezing (principal)
CPT/HCPCS: 36415; 84439; 84443; 84480

== ENCOUNTER → 2021-05-28 | Outpatient (CLI) | payer MEDICAID ==
[2020-10-14 09:30] VITALS: BP 138/72
[2021-05-28 20:21] LABS: FREE T4 0.55 ng/dL (0.76-1.46); THYROID STIM HORMONE (TSH) 1.303 uIU/mL (0.358-3.740)
== END ==
LOC: LAB 09:59
PROVIDERS: ATTEND Internal Medicine Endocrinology, Diabetes & Metabolism
DX: E05.90 Thyrotoxicosis, unspecified without thyrotoxic crisis or storm (principal)
CPT/HCPCS: 36415; 84439; 84443; 84480

== ENCOUNTER 2021-06-29 08:23 | Inpatient (IN) | payer MEDICAID ==
[~2021-06-29] VITALS: Ht 167.6 cm; Wt 88.2 kg
--- NOTE | 2021-06-29 08:58 | PHYS DOC ---
Past History Past Medical History: Diabetes, Hypertension Additional Past Medical Histor: thyroid storm Past Surgical History: Cholecystectomy Alcohol Use: None Drug Use: None General Adult EDM: Chief Complaint: COUGH HPI: HPI: Patient is a 60-year-old female coming in for complaints of low-grade fever, productive cough, body aches, chest pain, and vomiting. Patient states she has been sick for the past 2 days. Has a COPD history, and still smokes a pack a day, has been using her nebulizer with some improvement. Patient states she is influenza and COVID vaccinated, denies any known sick contacts. She reports taking an amoxicillin that she had leftover from a previous infection. Review of Systems: Review of Systems: All other systems within normal limits except for as noted in the HPI Allergies: Allergies: Allergies Coded Allergies Type Severity Reaction Last Updated Verified Iodinated Contrast Media Allergy Intermediate 09/07/20 Yes Physical Exam: PE: Constitutional: Well developed, well nourished, no acute distress, non-toxic appearance. [] HENT: Normocephalic, atraumatic, bilateral external ears normal, nose normal. [] Eyes: PERRLA, conjunctiva normal, no discharge. [] Neck: No rigidity, supple, no stridor. [] Cardiovascular: Regular rate and rhythm, brisk cap refill [] Lungs & Thorax: Non labored symmetric respirations, no tachypnea or respiratory distress. Bilateral rhonchi worse on right [] Abdomen: Soft, nondistended. Skin: Warm, dry, no erythema, no rash. [] Back: Unremarkable Extremities: No deformities, range of motion grossly intact, no lower extremity edema [] Neurologic: Alert and oriented X 3, no focal deficits noted. [] Psychologic: Affect normal, judgement normal, mood normal. [] Current Patient Data: Vital Signs: Vital Signs Date Time Temp Pulse Resp B/P (MAP) Pulse Ox O2 Delivery O2 Flow Rate FiO2 06/29/21 08:32 98.3 92 16 147/81 (103) 93 Room Air EKG: EKG: Sinus rhythm, heart rate 89 bpm, left axis deviation, no ectopy, no STEMI Radiology/Procedures: Radiology/Procedures: [address] [address] IMAGING REPORT Signed PATIENT: OMID CHO ACCOUNT: [id number] : 1960 LOCATION: ER AGE: 60 SEX: F EXAM STATUS: REG ER ORD. PHYSICIAN: BLADIMIR MCKEON MD REASON: chest pain, cough PROCEDURE: CHEST PA & LATERAL EXAM: XR CHEST 2V DATE: 06/29/2021 8:55 AM INDICATION: Reason: chest pain, cough / Spl. Instructions: / History: . COMPARISON: Exam of 10/13/2020. Findings: There may be minimal atelectasis or scarring in the medial right lung base. This had a similar appearance previously. No new infiltrate or effusion is seen. The heart is borderline enlarged, but unchanged. Pulmonary vascularity does not appear congested. Impression: No acute findings. Electronically signed by: Danyelle Huffman Jr., MD (06/29/2021 9:34 AM) [id number] DICTATED AND SIGNED BY: DANYELLE HUFFMAN Jr, MD DATE: 06/29/21 0933 CC: BLADIMIR MCKEON MD; JAROD URBINA MD ~ [] Heart Score: C/O Chest Pain: Yes HEART Score for Chest Pain: HEART Score for Chest Pain Response (Comments) Value History Slighlty/Non-Suspicious 0 ECG Nonspecific Repolarizatio 1 Age >45 - < 65 1 Risk Factors 1 or 2 Risk Factors 1 Troponin >1-<3x Normal Limit 1 Total 4 Risk Factors: Risk Factors: DM, Current or recent (<one month) smoker, HTN, HLP, family history of CAD, obesity. Risk Scores: Score 0 - 3: 2.5% MACE over next 6 weeks - Discharge Home Score 4 - 6: 20.3% MACE over next 6 weeks - Admit for Clinical Observation Score 7 - 10: 72.7% MACE over next 6 weeks - Early Invasive Strategies Course & Med Decision Making: Course & Med Decision Making Pertinent Labs and Imaging studies reviewed. (See chart for details) Patient desats to mid 80s when speaking. Low 90s at rest [place] PE score 0 Will admit for COPD exacerbation. Dragon Disclaimer: Dragmabel Disclaimer: This electronic medical record was generated, in whole or in part, using a voice recognition dictation system. Departure Departure: Impression: Primary Impression: Elevated troponin Additional Impressions: Alcohol intoxication COPD (chronic obstructive pulmonary disease) Disposition: 09 ADMITTED INPATIENT Admitting Physician: Susan Barlow Condition: STABLE Referrals: JAROD URBINA MD (PCP) BLADIMIR MCKEON MD June 29, 2021 08:58
[2021-06-29] MEDS ORDERED: IV NORMAL SALINE 1,000ML 1,000 ML IV ONE (09:00)
[2021-06-29] MEDS ORDERED: methylPREDNISolone SOD SUCC PF 125 MG/2 ML VIAL. IV ONE (09:00)
[2021-06-29] MEDS ORDERED: ACETAMINOPHEN 500 MG TABLET PO ONE (09:00)
[2021-06-29 09:29] LABS: BASO % 1 % (0-3); EOS % 1 % (0-3); HEMATOCRIT 40.7 % (36.0-47.0); HEMOGLOBIN 13.9 g/dL (12.0-15.5); LYMPH # 1.2 x10^3/uL (1.0-4.8); LYMPH % 20 % (24-48); MEAN CORPUSCULAR HEMOGLOBIN 33 pg (25-35); MEAN CORPUSCULAR HGB CONC 34 g/dL (31-37); MEAN CORPUSCULAR VOLUME 95 fL (79-100); MONO # 0.7 x10^3/uL (0.0-1.1); MONO % 13 % (0-9); NEUT # 3.7 x10^3uL (1.8-7.7); NEUT % 66 % (31-73); PLATELET COUNT 150 x10^3/uL (140-400); RED BLOOD COUNT 4.27 x10^6/uL (3.50-5.40); RED CELL DISTRIBUTION WIDTH 13.5 % (11.5-14.5); WHITE BLOOD COUNT 5.7 x10^3/uL (4.0-11.0)
[2021-06-29 09:32] LABS: CALCIUM 8.1 mg/dL (8.5-10.1); CREATININE 0.7 mg/dL (0.6-1.0); GFR 103.6; POTASSIUM 3.2 mmol/L (3.5-5.1)
--- NOTE | 2021-06-29 09:36 | RAD ---
EXAM: XR CHEST 2V DATE: 06/29/2021 8:55 AM INDICATION: Reason: chest pain, cough / Spl. Instructions: / History: . COMPARISON: Exam of 10/13/2020. Findings: There may be minimal atelectasis or scarring in the medial right lung base. This had a similar appear ance previously. No new infiltrate or effusion is seen. The heart is borderline enlarged, but unchang ed. Pulmonary vascularity does not appear congested. Impression: No acute findings. Electronically signed by: Juan Huffman Jr., MD (06/29/2021 9:34 AM) [id number]
[2021-06-29 09:45] LABS: ALBUMIN 3.6 g/dL (3.4-5.0); ALBUMIN/GLOBULIN RATIO 1.2 (1.0-1.7); INFLUENZA A PATIENT NEGATIVE (NEGATIVE); INFLUENZA B PATIENT NEGATIVE (NEGATIVE); TOTAL BILIRUBIN 0.4 mg/dL (0.2-1.0); TOTAL PROTEIN 6.7 g/dL (6.4-8.2)
[2021-06-29] MEDS ORDERED: ONDANSETRON PF 4 MG/2 ML VIAL. IVP ONE (09:45)
[2021-06-29] MEDS ORDERED: MORPHINE SULFATE 2 MG/ML DISP.SYRIN. IV ONE (09:45)
[2021-06-29] MEDS ORDERED: IPRATRPIUM/ALBUTEROL 0.5/2.5MG 3 ML NEBU. NEB PRN (10:30)
[2021-06-29] MEDS: ONDANSETRON PF 4 MG/2 ML VIAL. IVP PRN ×2 (10:52→17:16)
[2021-06-29 11:00] LABS: BACTERIA,URINE 0 /HPF (0-FEW); CLARITY,URINE CLEAR; COLOR,URINE YELLOW; GLUCOSE,URINE NEG (NEG); NITRITE,URINE NEG (NEG); RBC,URINE 0 /HPF (0-2); SQUAMOUS EPITHELIAL CELL,UR FEW /LPF; UROBILINOGEN,URINE 0.2 mg/dL (0.2 mg/dL); WBC,URINE 0 /HPF (0-4)
--- NOTE | 2021-06-29 12:00 | NUR ---
The patient, OMID CHO, 60 y/o, F admitted by RENETTA SHERIDAN MD, was given written information regarding hospital policies, unit procedures and contact persons. Valuables were checked and left with the patient.
[2021-06-29] MEDS ORDERED: LORazepam 1 MG TABLET PO PRN (12:15)
[2021-06-29 12:44] VITALS: BP 128/77
--- NOTE | 2021-06-29 13:14 | EKG ---
[address] [address] Test Date: 2021-06-29 Test Time: 09:00:20 Pat Name: OMID CHO Department: Room: 119 A Gender: F Engineering Geologist: ALIREZA : 1960 Requested By: BLADIMIR MCKEON Order Number: [id number] Reading MD: Reed Salvador MD Measurements Intervals [place] Rate: 89 P: 34 [place]: 166 QRS: -28 QRSD: 90 T: 56 QT: 388 QTc: 479 Interpretive Statements SINUS RHYTHM Electronically Signed On 07-01-2021 8:56:10 CDT by Reed Salvador MD
[2021-06-29] MEDS: IV NORMAL SALINE 1,000ML 1,000 ML IV SCH ×2 (13:27→20:30)
[2021-06-29] MEDS: ACETAMINOPHEN 325 MG TABLET PO PRN ×2 (13:47→17:44)
[2021-06-29] MEDS: methylPREDNISolone SOD SUCC PF 40 MG/ML VIAL. IV SCH ×2 (13:47→22:00)
[2021-06-29] MEDS: MORPHINE SULFATE 2 MG/ML DISP.SYRIN. IVP PRN ×3 (13:48→20:11)
[2021-06-29 15:00] VITALS: BP 128/75
[2021-06-29] MEDS ORDERED: chlordiazePOXIDE HCL 25 MG CAPSULE PO PRN ×2 (16:30)
[2021-06-29] MEDS: INSULIN LISPRO 300 UNITS/3 ML VIAL. SQ SCH (17:33)
--- NOTE | 2021-06-29 17:58 | HP ---
DATE OF SERVICE: 06/29/2021 ADMIT DATE: 06/29/2021 HISTORY OF PRESENT ILLNESS: The patient is a 60-year-old -Portuguese female patient who presented to the Emergency Room of [facility] with a complaint of shortness of breath, low-grade fever, cough that is productive of scanty sputum, generalized aches and pains, chest pain and vomiting as well as shortness of breath. All her symptoms started about last . She apparently was diagnosed with COPD about 5 years ago, but has not been using any of her bronchodilators. She stated that she smokes a pack a day and has been using nebulizer with some improvement. She has been up to date on her COVID vaccination, but has not had influenza vaccine. She denied any known sick contact. She reported taking amoxicillin. She had a leftover from previous infection without much improvement and therefore she came to the Emergency Room for further evaluation and treatment. She was extensively investigated with lab work and imaging studies. Her white cell count was normal at 5.7. Her chemistry showed that she has mild hypernatremia and hypokalemia. Her troponin I high sensitivity was 65; however, beta natriuretic peptide was only 26. Her urinalysis was essentially unremarkable. Her toxic screen showed her blood alcohol level was 264. Her influenza A and B were negative and coronavirus by rapid antigen testing was negative. Her chest x-ray showed that there may be minimal atelectasis or scarring in the medial right lung base. She has had a similar appearance previously, no new infiltrate or effusion is seen. The heart is borderline enlarged, but unchanged. Pulmonary vascularity does not appear congested. The patient was admitted with acute bronchitis, COPD exacerbation and mildly elevated troponin as well as alcohol intoxication. Plan is we will arrange for her to have 2 more sets of cardiac enzyme. Her EKG, however, showed that she was in normal sinus rhythm with a heart rate of 89 beats per minute, left axis deviation. No ectopy and no STEMI. She was started also on IV Levaquin, IV Solu-Medrol, and montelukast as well as Mucinex. I will add also DuoNeb and we will follow her closely. PAST MEDICAL HISTORY: Significant for COPD, type 2 diabetes mellitus, hypertension, hyperlipidemia, hypothyroidism. She was in fact diagnosed with Graves' disease and was treated with radioactive iodine ablation on 05/24/2021. PAST SURGICAL HISTORY: Significant for ectopic and 5 breast surgeries for benign cyst. ALLERGIES: SHE IS ALLERGIC TO IV CONTRAST, IT CAUSED HIVES. MEDICATIONS: She is currently on the following medications: She is on albuterol sulfate 2 puffs as needed, atorvastatin calcium 20 mg daily, atenolol 100 mg once a day, amlodipine besylate 10 mg once a day, losartan potassium 100 mg daily, ibuprofen 800 mg 3 times a day, tramadol, hydrochloride 50 mg 4 times a day, lorazepam 1 mg at bedtime, Ambien 5 mg at bedtime, furosemide 20 mg once a day, prochlorperazine maleate 10 mg at bedtime, Protonix 20 mg daily. She is on Lantus insulin 30 units b.i.d. and insulin lispro 5 units before meals. She is on methimazole 10 mg twice a day and cholecalciferol vitamin D3 50,000 International Units once a week. FAMILY HISTORY: She has 1 sister who with pancreatic cancer. She has 2 brothers that are younger and 4 other sisters, 2 of them are older and 2 younger. Hypertension, diabetes is common in her family. Her father at age of 72 because of lymphoma. Mother because of complication of end-stage renal disease. She was on hemodialysis, has CABG and permanent pacemaker. SOCIAL HISTORY: She is , has no children. She smokes a pack a day. According to her, she does not drink alcohol on a daily basis and quit drinking for 4 years and 6 months and relapsed only recently. She does not use any drugs. She is a retired teacher. REVIEW OF SYSTEMS: The patient denied any blurring of vision, cataracts, glaucoma or macular degeneration. Denied any earache, tinnitus or sensorineural deafness. Denied any nosebleed, stuffy nose or postnasal drip. Denied any sore throat, sore tongue, toothache, hoarseness of voice or difficulty swallowing. Denied any nausea or vomiting. Did complain of nausea and vomiting. Denied any diarrhea or constipation. Denied any hematemesis, melena or hematochezia. Denied any dysuria, frequency or hematuria. Did complain of chest pain and shortness of breath, but denied any orthopnea or paroxysmal nocturnal dyspnea. PHYSICAL EXAMINATION: GENERAL: On arrival to the Emergency Room, she looked well and was clearly in no apparent respiratory distress. There was no pallor, jaundice, cyanosis or thyromegaly. No jugular venous distention. No limb edema. VITAL SIGNS: Her heart rate was 82, blood pressure is 124/82, temperature was 98.3, respiratory rate was 20 and oxygen saturation was 93% on room air. HEAD, EYES, EARS, NOSE, AND THROAT: Normocephalic, atraumatic. NECK: Supple. HEART: Showed normal first and second heart sounds. No gallop, rub or murmur. CHEST: Clear to auscultation, no crepitation, rhonchi. She does have a few diffuse rhonchi bilaterally posteriorly. I could not appreciate any crepitation. ABDOMEN: Distended, soft, nontender. NEUROLOGIC: She was grossly intact. LABORATORY WORK: Showed her white cell count to be 5.7, hemoglobin 14, hematocrit 40, MCV 95 and platelet count of 150,000 with normal manual differential. Her chemistry showed a serum sodium 146, potassium 3.2, chloride 108, bicarbonate 24, anion gap of 14, BUN 12, creatinine 0.7. Estimated GFR was 103 mL per minute. Her glucose 197, calcium was 8.1. Total bilirubin, AST, ALT, alkaline phosphatase slightly elevated. Her troponin I high sensitivity was 65 and beta natriuretic peptide was 26. Total protein 6.7, albumin 3.6. Her toxic screen was positive to have the fact that her blood alcohol level was 264. ASSESSMENT AND PLAN: In summary, this is a 60-year-old -Portuguese female patient who was admitted with chest pain and slightly elevated troponin. She had alcohol intoxication and chronic obstructive pulmonary disease exacerbation. She has a multitude of medical problems including hypertension, hyperlipidemia, hypothyroidism as well as type 2 diabetes mellitus. My plan is to do 2 more sets of cardiac enzyme. Continue with IV Levaquin, Solu-Medrol and albuterol sulfate and ipratropium bromide, check her fasting lipid profile. I will consult the Cardiology team if her troponin has risen further. SAMINA/WADE/SULAIMAN DR: Leonard TID: [id number]
[2021-06-29 20:19] VITALS: BP 119/76
[2021-06-29] MEDS: PROCHLORPERAZINE 5 MG TABLET. PO SCH (21:00)
[2021-06-29] MEDS: MONTELUKAST 10 MG TABLET. PO SCH ×2 (21:15→21:18)
[2021-06-29] MEDS: ZOLPIDEM 5 MG TABLET. PO SCH (21:16)
[2021-06-29] MEDS: LORazepam 1 MG TABLET PO SCH (21:16)
[2021-06-29] MEDS: IPRATRPIUM/ALBUTEROL 0.5/2.5MG 3 ML NEBU. NEB SCH (21:28)
[2021-06-29] MEDS: INSULIN GLARGINE SYRINGE. SQ SCH (22:15)
[2021-06-29] MEDS: traMADol 50 MG TABLET PO PRN (23:22)
[2021-06-30] MEDS: ONDANSETRON PF 4 MG/2 ML VIAL. IVP PRN ×2 (01:59→08:39)
[2021-06-30] MEDS: MORPHINE SULFATE 2 MG/ML DISP.SYRIN. IVP PRN ×2 (01:59→09:25)
[2021-06-30 03:00] VITALS: BP 120/80
[2021-06-30] MEDS: IPRATRPIUM/ALBUTEROL 0.5/2.5MG 3 ML NEBU. NEB SCH ×4 (05:39→19:44)
[2021-06-30 06:38] VITALS: BP 143/83
[2021-06-30 07:39] LABS: CALCIUM 8.8 mg/dL (8.5-10.1); CREATININE 0.6 mg/dL (0.6-1.0); GFR 123.8; POTASSIUM 3.8 mmol/L (3.5-5.1)
[2021-06-30] MEDS: traMADol 50 MG TABLET PO PRN (08:39)
[2021-06-30] MEDS: methylPREDNISolone SOD SUCC PF 40 MG/ML VIAL. IV SCH ×2 (08:39→17:02)
[2021-06-30] MEDS: ATENOLOL 50 MG TABLET PO SCH (08:40)
[2021-06-30] MEDS: PANTOPRAZOLE 40 MG TABLET. PO SCH (08:40)
[2021-06-30] MEDS: LOSARTAN 50 MG TABLET. PO SCH (08:41)
[2021-06-30] MEDS: NICOTINE 21MG PATCH. TD SCH (08:41)
[2021-06-30] MEDS: ATORVASTATIN CALCIUM 20 MG TABLET PO SCH (08:41)
[2021-06-30] MEDS: amLODIPine BESYLATE 10 MG TABLET PO SCH (08:41)
[2021-06-30] MEDS: INSULIN LISPRO 300 UNITS/3 ML VIAL. SQ SCH ×5 (08:44→17:06)
[2021-06-30] MEDS: INSULIN GLARGINE SYRINGE. SQ SCH ×2 (09:34→20:55)
[2021-06-30 10:10] LABS: BASO % 1 % (0-3); EOS % 0 % (0-3); HEMATOCRIT 40.9 % (36.0-47.0); HEMOGLOBIN 14.1 g/dL (12.0-15.5); LYMPH # 0.6 x10^3/uL (1.0-4.8); LYMPH % 15 % (24-48); MEAN CORPUSCULAR HEMOGLOBIN 33 pg (25-35); MEAN CORPUSCULAR HGB CONC 34 g/dL (31-37); MEAN CORPUSCULAR VOLUME 95 fL (79-100); MONO # 0.3 x10^3/uL (0.0-1.1); MONO % 8 % (0-9); NEUT # 3.1 x10^3uL (1.8-7.7); NEUT % 77 % (31-73); PLATELET COUNT 48 x10^3/uL (140-400); RED BLOOD COUNT 4.29 x10^6/uL (3.50-5.40); RED CELL DISTRIBUTION WIDTH 13.4 % (11.5-14.5)
[2021-06-30 10:13] LABS: CHOLESTEROL/HDL RATIO 2.1
[2021-06-30 11:00] VITALS: BP 156/81
[2021-06-30] MEDS ORDERED: DEXTROSE 50% 25 GM / 50ML DISP.SYRIN. IV PRN (11:15)
[2021-06-30] MEDS ORDERED: traMADol 50 MG TABLET PO PRN (11:30)
[2021-06-30 11:41] LABS: PLT ESTIMATE DECREASED (ADEQUATE)
[2021-06-30 11:50] LABS: HEMATOCRIT 43.6 % (36.0-47.0); HEMOGLOBIN 15.1 g/dL (12.0-15.5); RED BLOOD COUNT 4.66 x10^6/uL (3.50-5.40); RED CELL DISTRIBUTION WIDTH 13.1 % (11.5-14.5); WHITE BLOOD COUNT 7.6 x10^3/uL (4.0-11.0)
[2021-06-30 15:00] VITALS: BP 124/76
[2021-06-30] MEDS ORDERED: INSULIN LISPRO 300 UNITS/3 ML VIAL. SQ ONE (17:00)
[2021-06-30 19:00] VITALS: BP 128/76
--- NOTE | 2021-06-30 20:26 | PN ---
DATE: 06/30/2021 SUBJECTIVE: The patient is resting, slightly propped up in bed, in no apparent respiratory distress. She continued to complain of generalized aches and pains as well as shortness of breath, chest tightness. PHYSICAL EXAMINATION: GENERAL: When I examined her, there was no pallor, jaundice, cyanosis, or thyromegaly. No jugular venous distention. No limb edema. VITAL SIGNS: Her heart rate was 103, blood pressure was 143/83, temperature was 98.3, respiratory rate was 24, oxygen saturation was 93% on room air. HEAD, EYES, EARS, NOSE AND THROAT: Normocephalic, atraumatic. NECK: Supple. HEART: Showed normal first and second heart sounds. No gallop or murmur. CHEST: Shows central trachea, equal bilateral chest expansion, air entry with diffuse rhonchi, particularly posteriorly. I could not appreciate any crepitation. ABDOMEN: Distended, soft, nontender. NEUROLOGIC: She is grossly intact. Her intake over the last 24 hours and output are incompletely recorded. LABORATORY DATA: This morning showed a white cell count of 4000, hemoglobin 14, hematocrit 41, MCV 95 and platelet count 48,000 with a manual differential of 77% polymorphs, 15% lymphocytes, 8% monocytes. Her serum sodium was 135, potassium 3.8, chloride 100, bicarbonate 23, anion gap of 12, BUN 12, creatinine 0.6. Estimated GFR was 123 mL per minute. Her glucose was 323, calcium was 8.8. Her serum triglycerides was 107. Total cholesterol 159, LDL was 62, VLDL was 21, HDL cholesterol was 76 and the ratio was 2.1. She has 4 sets of troponin I high sensitivity and they are all her around 65 ng/mL with upper limit of normal was 50. I did consult the lead project manager and apparently the patient did have nuclear stress test done last year before her treatment for her Graves' disease according to her. ASSESSMENT: 1. In summary, this is a 60-year-old -[place] female patient who was admitted with chest pain and slightly elevated myocardial infarction. Her EKG showed no evidence of ST segment elevation. 2. Alcohol intoxication. 3. Acute exacerbation of chronic obstructive pulmonary disease. 4. Hypertension. 5. Hyperlipidemia. 6. Hypothyroidism. In fact, she has Graves' disease, treated with radioactive iodine ablation and she continues to be on methimazole. 7. Type 2 diabetes mellitus. PLAN: She has also thrombocytopenia, which I do not know whether this is real or apparent. I will definitely repeat her lab work and we might have to discontinue Levaquin as the most likely culprit. SAMINA/JACKIE DR: Leonard TID: [id number]
[2021-06-30] MEDS: LORazepam 1 MG TABLET PO SCH (20:47)
[2021-06-30] MEDS: ZOLPIDEM 5 MG TABLET. PO SCH (20:47)
[2021-06-30] MEDS: PROCHLORPERAZINE 5 MG TABLET. PO SCH (20:49)
[2021-06-30] MEDS ORDERED: MONTELUKAST 10 MG TABLET. PO ONE (21:00)
[2021-07-01] MEDS: IPRATRPIUM/ALBUTEROL 0.5/2.5MG 3 ML NEBU. NEB SCH ×2 (04:48→12:23)
[2021-07-01 05:55] VITALS: BP 115/71
[2021-07-01] MEDS: methylPREDNISolone SOD SUCC PF 40 MG/ML VIAL. IV SCH (06:00)
[2021-07-01 07:15] LABS: HEMATOCRIT 43.7 % (36.0-47.0); RED BLOOD COUNT 4.64 x10^6/uL (3.50-5.40); RED CELL DISTRIBUTION WIDTH 13.4 % (11.5-14.5); WHITE BLOOD COUNT 7.4 x10^3/uL (4.0-11.0)
--- NOTE | 2021-07-01 08:00 | NUR ---
pt is alert and oriented. pt is pleasant and ready to go home. pt denies any chest pain and reports improved symptoms.
[2021-07-01] MEDS: LOSARTAN 50 MG TABLET. PO SCH (08:13)
[2021-07-01] MEDS: amLODIPine BESYLATE 10 MG TABLET PO SCH (08:13)
[2021-07-01] MEDS: ATENOLOL 50 MG TABLET PO SCH (08:14)
[2021-07-01] MEDS: PANTOPRAZOLE 40 MG TABLET. PO SCH (08:14)
[2021-07-01] MEDS: ATORVASTATIN CALCIUM 20 MG TABLET PO SCH (08:14)
[2021-07-01] MEDS: INSULIN LISPRO 300 UNITS/3 ML VIAL. SQ SCH ×4 (08:17→12:26)
[2021-07-01] MEDS: NICOTINE 21MG PATCH. TD SCH (08:19)
[2021-07-01] MEDS: INSULIN GLARGINE SYRINGE. SQ SCH (08:23)
--- NOTE | 2021-07-01 08:29 | PDOC2 ---
SEBASTIEN GRUBER CAT 07/01/21 0829: CARDIAC CONSULT DATE OF CONSULT DOS: DATE: 07/01/21 TIME: 08:21 REASON FOR CONSULT Reason for Consult Chest pain REFERRING PHYSICIAN Referring Physician Dr. Barlow SOURCE Source: Chart review, Patient HPI History of Present Illness This is a 60 yo female who presented secondary to body aches, fevers, productive cough, vomiting, and shortness of breath, and chest pain. Pain located in her central chest. Worse with deep breathing. No associated dizziness, diaphoresis, palpitations. Is feeling much better today. PAST MEDICAL HISTORY Past Medical History 1. Graves' disease. 2. Palpitations. 3. Diabetes. 4. Hypertension. 5. SUPA PAST SURGICAL HISTORY Past Surgical History breast surgeries for benign cyst FAMILY HISTORY Family History: Heart Disease SOCIAL HISTORY Smoke: 1 pack per day ALCOHOL: occassional Drugs: None Lives: with Family CURRENT MEDICATIONS Current Medications Current Medications Acetaminophen (Tylenol) 1,000 mg 1X ONCE PO Last administered on 06/29/21at 09:00; Start 06/29/21 at 09:00; Stop 06/29/21 at 09:01; Status DC Sodium Chloride 1,000 ml @ 1,000 mls/hr 1X ONCE IV Last administered on 06/29/21at 09:00; Start 06/29/21 at 09:00; Stop 06/29/21 at 09:59; Status DC Methylprednisolone Sodium Succinate (SOLU-Medrol 125MG VIAL) 125 mg 1X ONCE IV Last administered on 06/29/21at 09:00; Start 06/29/21 at 09:00; Stop 06/29/21 at 09:18; Status DC Ondansetron HCl (Zofran) 4 mg 1X ONCE IVP Last administered on 06/29/21at 09:45; Start 06/29/21 at 09:45; Stop 06/29/21 at 09:46; Status DC Morphine Sulfate (Morphine 2mg Syringe) 2 mg 1X ONCE IV Last administered on 06/29/21at 09:45; Start 06/29/21 at 09:45; Stop 06/29/21 at 09:46; Status DC Levofloxacin/ Dextrose 150 ml @ 100 mls/hr 1X ONCE IV Last administered on 06/29/21at 10:30; Start 06/29/21 at 10:30; Stop 06/30/21 at 11:29; Status DC Ondansetron HCl (Zofran) 4 mg PRN Q4HRS PRN IVP NAUSEA/VOMITING Last administered on 06/30/21 08:39; Start 06/29/21 at 10:30; Stop 06/30/21 at 10:29; Status DC Morphine Sulfate (Morphine 2mg Syringe) 2 mg PRN Q2HR PRN IVP PAIN Last administered on 06/30/21 09:25; Start 06/29/21 at 10:30; Stop 06/30/21 at 10:29; Status DC Sodium Chloride 1,000 ml @ 100 mls/hr Q10H IV Last administered on 06/29/21 13:27; Start 06/29/21 at 10:30; Stop 06/30/21 at 07:10; Status DC Acetaminophen (Tylenol) 650 mg PRN Q4HRS PRN PO FEVER > 100.3'F Last administered on 06/29/21 13:47; Start 06/29/21 at 10:30; Stop 06/30/21 at 10:29; Status DC Albuterol/ Ipratropium (Duoneb) 3 ml PRN Q4HRS PRN NEB SHORTNESS OF BREATH; Start 06/29/21 at 10:30; Stop 06/30/21 at 10:29; Status DC Amlodipine Besylate (Norvasc) 10 mg DAILY PO Last administered on 07/01/21 08:13; Start 06/30/21 at 09:00 Atorvastatin Calcium (Lipitor) 20 mg DAILY PO Last administered on 07/01/21 08:14; Start 06/30/21 at 09:00 Vitamin D (Vitamin D3) 50,000 unit WEEKLY PO ; Start 07/06/21 at 09:00 Insulin Human Lispro (HumaLOG) 5 units TIDAC SQ Last administered on 07/01/21 08:17; Start 06/29/21 at 16:30 Lorazepam (Ativan) 1 mg HS PO Last administered on 06/30/21 20:47; Start 06/29/21 at 21:00 Lorazepam (Ativan) 1 mg PRN TID PRN PO ANXIETY / AGITATION; Start 06/29/21 at 12:15 Tramadol HCl (Ultram) 50 mg PRN QID PRN PO pain Last administered on 06/30/21 08:39; Start 06/29/21 at 12:15; Stop 06/30/21 at 11:29; Status DC Zolpidem Tartrate (Ambien) 5 mg QHS PO Last administered on 06/30/21 20:47; Start 06/29/21 at 21:00 Atenolol (Tenormin) 100 mg DAILY PO Last administered on 07/01/21 08:14; Start 06/30/21 at 09:00 Insulin Glargine (Lantus Syringe) 30 unit BID SQ Last administered on 06/30/21 20:55; Start 06/29/21 at 21:00 Losartan Potassium (Cozaar) 100 mg DAILY PO Last administered on 07/01/21 08:13; Start 06/30/21 at 09:00 Methimazole (Tapazole) 10 mg BID PO Last administered on 06/30/21 08:40; Start 06/29/21 at 21:00; Stop 06/30/21 at 12:36; Status DC Pantoprazole Sodium (Protonix) 40 mg DAILYAC PO Last administered on 07/01/21 08:14; Start 06/30/21 at 07:30 Prochlorperazine Maleate (Compazine) 10 mg QHS PO Last administered on 06/30/21 20:49; Start 06/29/21 at 21:00 Methylprednisolone Sodium Succinate (SOLU-Medrol 40MG VIAL) 40 mg Q8HRS IV Last administered on 06/30/21 08:39; Start 06/29/21 at 14:00; Stop 06/30/21 at 11:21; Status DC Guaifenesin (Mucinex Er) 600 mg BID PO Last administered on 07/01/21 08:13; Start 06/29/21 at 21:00 Montelukast Sodium (Singulair) 10 mg QHS PO Last administered on 06/29/21 21:18; Start 06/29/21 at 21:00 Albuterol/ Ipratropium (Duoneb) 3 ml RTQID NEB Last administered on 07/01/21 04:48; Start 06/29/21 at 20:00 Levofloxacin/ Dextrose 150 ml @ 100 mls/hr Q24H IV ; Start 06/30/21 at 17:00; Stop 06/30/21 at 11:29; Status DC Multivitamins/ Calcium (Thera-M Plus) 1 tab DAILY PO ; Start 07/04/21 at 09:00 Folic Acid (Folic Acid) 1 mg DAILY PO ; Start 07/04/21 at 09:00 Thiamine HCl (Vitamin B-1) 100 mg DAILY PO ; Start 07/04/21 at 09:00 Chlordiazepoxide (Librium) 50 mg PRN Q1HR PRN PO For CIWA 8-14 Last administered on 06/30/21at 08:39; Start 06/29/21 at 16:30 Chlordiazepoxide (Librium) 100 mg PRN Q1HR PRN PO For CIWA 15 or greater; Start 06/29/21 at 16:30 Lorazepam (Ativan Inj) 2 mg PRN Q1HR PRN IV For CIWA 8-14; Start 06/29/21 at 16:30 Nicotine (Nicoderm Cq 21mg Patch) 1 patch DAILY TD Last administered on 06/30/21at 08:41; Start 06/30/21 at 09:00 Insulin Human Lispro (HumaLOG) 0-9 UNITS TIDWMEALS SQ Last administered on 07/01/21at 08:17; Start 06/30/21 at 12:00 Dextrose (Dextrose 50%-Water Syringe) 12.5 gm PRN Q15MIN PRN IV SEE COMMENTS; Start 06/30/21 at 11:15 Methylprednisolone Sodium Succinate (SOLU-Medrol 40MG VIAL) 40 mg Q12H IV Last administered on 07/01/21at 06:00; Start 06/30/21 at 18:00 Tramadol HCl (Ultram) 100 mg PRN QID PRN PO pain Last administered on 06/30/21at 15:32; Start 06/30/21 at 11:30 Insulin Human Lispro (HumaLOG) 5 units 1X ONCE SQ Last administered on 06/30/21at 17:07; Start 06/30/21 at 17:00; Stop 06/30/21 at 17:01; Status DC Montelukast Sodium (Singulair) 10 mg 1X ONCE PO Last administered on 06/30/21at 20:56; Start 06/30/21 at 21:00; Stop 06/30/21 at 21:01; Status DC Active Scripts Active Reported Ativan (Lorazepam) 1 Mg Tablet 1 Mg PO HS Furosemide 20 Mg Tablet 10 Mg PO DAILY Tapazole (Methimazole) 10 Mg Tablet 10 Mg PO BID Lantus Solostar (Insulin Glargine,Hum.rec.anlog) 100 Unit/1 Ml Insuln.pen 30 Un it SQ BID Humalog (Insulin Lispro) 100 Unit/1 Ml Insuln.pen 5 Unit SQ TIDAC Ibuprofen 800 Mg Tablet 1 Tab PO PRN TID PRN Pantoprazole Sodium 20 Mg Tablet.dr 1 Tab PO DAILY Losartan Potassium 100 Mg Tablet 1 Tab PO DAILY Amlodipine Besylate 10 Mg Tablet 1 Tab PO DAILY Atenolol 100 Mg Tablet 1 Tab PO DAILY Atorvastatin Calcium 20 Mg Tablet 1 Tab PO DAILY Tramadol Hcl (Tramadol HCl) 50 Mg Tablet 1 Tab PO QID PRN Zolpidem Tartrate 5 Mg Tablet 1 Tab PO QHS Prochlorperazine Maleate 10 Mg Tablet 1 Tab PO QHS Proventil Hfa (Albuterol Sulfate) 6.7 Gm Hfa.aer.ad 2 Puff INH PRN DAILY PRN D3-50 (Cholecalciferol (Vitamin D3)) 50,000 Unit Capsule 1 Cap PO WEEKLY Ativan (Lorazepam) 1 Mg Tablet 1 Tab PO PRN TID PRN ALLERGIES Allergies: Coded Allergies: Iodinated Contrast Media (Verified Allergy, Intermediate, 09/07/20) ROS Review of Systems 14 point ROS conducted with pertinent positives noted above in HPI PHYSICAL EXAM General: Alert, Oriented X3, Cooperative, No acute distress HEENT: Atraumatic Lungs: Clear to auscultation Heart: Regular rate Abdomen: Soft Extremities: No edema, Normal pulses Skin: No breakdown Neuro: Normal speech, Sensation intact Psych/Mental Status: Mental status NL, Mood NL MUSCULOSKELETAL: No joint tenderness, Osteoarthritic changes both hands VITALS Vital Signs Vital Signs Date Time Temp Pulse Resp B/P (MAP) Pulse Ox O2 Delivery O2 Flow Rate FiO2 07/01/21 08:14 82 115/71 07/01/21 05:55 98.0 20 93 Room Air 06/30/21 09:57 2.0 LABS LABS Laboratory Tests Test 06/29/21 09:00 06/29/21 09:07 06/29/21 10:20 06/29/21 11:56 Bedside Venous pH 7.45 (7.32-7.42) Bedside Venous pCO2 36 mmHg (41-51) Bedside Venous pO2 51 mmHg (20-40) Venous Blood HCO3 25 mmol/L (24-28) POC Venous O2 Saturation (Diamante) 87 % Bedside FiO2 21 White Blood Count 5.7 x10^3/uL (4.0-11.0) Red Blood Count 4.27 x10^6/uL (3.50-5.40) Hemoglobin 13.9 g/dL (12.0-15.5) Hematocrit 40.7 % (36.0-47.0) Mean Corpuscular Volume 95 fL (79-100) Mean Corpuscular Hemoglobin 33 pg (25-35) Mean Corpuscular Hemoglobin Concent 34 g/dL (31-37) Red Cell Distribution Width 13.5 % (11.5-14.5) Platelet Count 150 x10^3/uL (140-400) Neutrophils (%) (Auto) 66 % (31-73) Lymphocytes (%) (Auto) 20 % (24-48) Monocytes (%) (Auto) 13 % (0-9) Eosinophils (%) (Auto) 1 % (0-3) Basophils (%) (Auto) 1 % (0-3) Neutrophils # (Auto) 3.7 x10^3uL (1.8-7.7) Lymphocytes # (Auto) 1.2 x10^3/uL (1.0-4.8) Monocytes # (Auto) 0.7 x10^3/uL (0.0-1.1) Eosinophils # (Auto) 0.0 x10^3/uL (0.0-0.7) Basophils # (Auto) 0.0 x10^3/uL (0.0-0.2) Sodium Level 146 mmol/L (136-145) Potassium Level 3.2 mmol/L (3.5-5.1) Chloride Level 108 mmol/L (98-107) Carbon Dioxide Level 24 mmol/L (21-32) Anion Gap 14 (6-14) Blood Urea Nitrogen 12 mg/dL (7-20) Creatinine 0.7 mg/dL (0.6-1.0) Estimated GFR (Cockcroft-Gault) 103.6 BUN/Creatinine Ratio 17 (6-20) Glucose Level 197 mg/dL (70-99) Lactic Acid Level 2.8 mmol/L (0.4-2.0) Calcium Level 8.1 mg/dL (8.5-10.1) Total Bilirubin 0.4 mg/dL (0.2-1.0) Aspartate Amino Transf (AST/SGOT) 51 U/L (15-37) Alanine Aminotransferase (ALT/SGPT) 52 U/L (14-59) Alkaline Phosphatase 144 U/L (46-116) Troponin I High Sensitivity 65 ng/L (4-50) NA-Aai-S-Type Natriuretic Peptide 26 pg/mL (0-124) Total Protein 6.7 g/dL (6.4-8.2) Albumin 3.6 g/dL (3.4-5.0) Albumin/Globulin Ratio 1.2 (1.0-1.7) Ethyl Alcohol Level 264 mg/dL (0-10) Coronavirus (COVID-19)(PCR) Not detected (NOT DETECTD) Influenza Type A (Rapid) Negative (NEGATIVE) Influenza Type B (Rapid) Negative (NEGATIVE) SARS-CoV-2 Antigen (Rapid) Negative (NEGATIVE) Urine Collection Type Unknown Urine Color Yellow Urine Clarity Clear Urine pH 6.0 Urine Specific [place] 1.010 Urine Protein Neg (NEG-TRACE) Urine Glucose (UA) Neg mg/dL (NEG) Urine Ketones (Stick) Neg mg/dL (NEG) Urine Blood Neg (NEG) Urine Nitrite Neg (NEG) Urine Bilirubin Neg (NEG) Urine Urobilinogen Dipstick 0.2 mg/dL (0.2 mg/dL) Urine Leukocyte Esterase Neg (NEG) Urine RBC 0 /HPF (0-2) Urine WBC 0 /HPF (0-4) Urine Squamous Epithelial Cells Few /LPF Urine Bacteria 0 /HPF (0-FEW) Glucose (Fingerstick) 177 mg/dL (70-99) Test 06/29/21 12:40 06/29/21 15:40 06/29/21 15:47 06/29/21 17:25 Lactic Acid Level 2.7 mmol/L (0.4-2.0) Troponin I High Sensitivity 65 ng/L (4-50) 69 ng/L (4-50) Triglycerides Level 107 mg/dL (0-150) Cholesterol Level 159 mg/dL (0-200) LDL Cholesterol, Calculated 62 mg/dL (0-100) VLDL Cholesterol, Calculated 21 mg/dL (0-40) Non-HDL Cholesterol Calculated 83 mg/dL (0-129) HDL Cholesterol 76 mg/dL (40-60) Cholesterol/HDL Ratio 2.1 Glucose (Fingerstick) 399 mg/dL (70-99) Test 06/29/21 18:40 06/29/21 21:56 06/30/21 06:55 06/30/21 11:40 Troponin I High Sensitivity 65 ng/L (4-50) Glucose (Fingerstick) 356 mg/dL (70-99) White Blood Count 4.0 x10^3/uL (4.0-11.0) 7.6 x10^3/uL (4.0-11.0) Red Blood Count 4.29 x10^6/uL (3.50-5.40) 4.66 x10^6/uL (3.50-5.40) Hemoglobin 14.1 g/dL (12.0-15.5) 15.1 g/dL (12.0-15.5) Hematocrit 40.9 % (36.0-47.0) 43.6 % (36.0-47.0) Mean Corpuscular Volume 95 fL (79-100) 94 fL (79-100) Mean Corpuscular Hemoglobin 33 pg (25-35) 32 pg (25-35) Mean Corpuscular Hemoglobin Concent 34 g/dL (31-37) 35 g/dL (31-37) Red Cell Distribution Width 13.4 % (11.5-14.5) 13.1 % (11.5-14.5) Platelet Count 48 x10^3/uL (140-400) 159 x10^3/uL (140-400) Neutrophils (%) (Auto) 77 % (31-73) Lymphocytes (%) (Auto) 15 % (24-48) Monocytes (%) (Auto) 8 % (0-9) Eosinophils (%) (Auto) 0 % (0-3) Basophils (%) (Auto) 1 % (0-3) Neutrophils # (Auto) 3.1 x10^3uL (1.8-7.7) Lymphocytes # (Auto) 0.6 x10^3/uL (1.0-4.8) Monocytes # (Auto) 0.3 x10^3/uL (0.0-1.1) Eosinophils # (Auto) 0.0 x10^3/uL (0.0-0.7) Basophils # (Auto) 0.0 x10^3/uL (0.0-0.2) Platelet Estimate Decreased (ADEQUATE) Sodium Level 135 mmol/L (136-145) Potassium Level 3.8 mmol/L (3.5-5.1) Chloride Level 100 mmol/L (98-107) Carbon Dioxide Level 23 mmol/L (21-32) Anion Gap 12 (6-14) Blood Urea Nitrogen 12 mg/dL (7-20) Creatinine 0.6 mg/dL (0.6-1.0) Estimated GFR (Cockcroft-Gault) 123.8 Glucose Level 323 mg/dL (70-99) Calcium Level 8.8 mg/dL (8.5-10.1) Test 06/30/21 11:46 06/30/21 16:46 06/30/21 20:16 07/01/21 06:13 Glucose (Fingerstick) 356 mg/dL (70-99) 425 mg/dL (70-99) 325 mg/dL (70-99) White Blood Count 7.4 x10^3/uL (4.0-11.0) Red Blood Count 4.64 x10^6/uL (3.50-5.40) Hemoglobin 15.0 g/dL (12.0-15.5) Hematocrit 43.7 % (36.0-47.0) Mean Corpuscular Volume 94 fL (79-100) Mean Corpuscular Hemoglobin 32 pg (25-35) Mean Corpuscular Hemoglobin Concent 34 g/dL (31-37) Red Cell Distribution Width 13.4 % (11.5-14.5) Platelet Count 131 x10^3/uL (140-400) Test 07/01/21 07:30 Glucose (Fingerstick) 389 mg/dL (70-99) ECHOCARDIOGRAM Echocardiogram <Conclusion> The left ventricular systolic function is normal and the ejection fraction is within normal range. The Ejection Fraction is 55-60%. There is normal LV segmental wall motion. Doppler and Color Flow revealed trace tricuspid regurgitation. The PA pressure was estimated at 34 mmHg. DATE: 06/12/20 1114 STRESS TEST Stress Test Conclusion 1. No evidence of EKG changes with stress testing. 2. Normal perfusion at stress/rest. 3. Low risk study. 4. EF > 60%. DATE: 06/12/20 1300 ASSESSMENT/PLAN Assessment/Plan 1. Acute respiratory failure with bronchitis, AECOPD 2. Chest pain, atypical 3. Mild troponin elevation; peak 69- type II, demand ischemia. Stress test 06/13 without any evidence of ischemia 4. Hypertension; controlled 5. Hyperlipidemia; statin 6. Diabetes, II 7. Graves disease s/p ablation. on methimazole. 8. Tobaccoism; discussed/encouraged cessation 9. ETOH intoxication AVNI MARTINEZ MD 07/01/21 1827: CARDIAC CONSULT ASSESSMENT/PLAN Assessment/Plan Patient seen and examined. Agree with PHYSICAL MEDICINE TEACHER's assessment and plan as stated above SEBASTIEN GRUBER APRN July 01, 2021 08:29 AVNI MARTINEZ MD July 01, 2021 18:27
[2021-07-01 10:52] VITALS: BP 129/75
--- NOTE | 2021-07-01 12:25 | NUR ---
pt's IV was discontinued, discharge paperwork was signed. at bedside to take pt home. pt was instructed on blood sugar control and management at home. pt agrees. pt was wheeled out to car with .
[2021-07-01] MEDS ORDERED: INSULIN LISPRO 300 UNITS/3 ML VIAL. SQ SCH (12:30)
[2021-07-01] MEDS ORDERED: INSULIN LISPRO 300 UNITS/3 ML VIAL. SQ ONE (12:45)
[2021-07-04] MEDS ORDERED: MULTIVITAMIN with MINERAL TABLET. PO SCH (09:00)
[2021-07-04] MEDS ORDERED: THIAMINE 100 MG TABLET. PO SCH (09:00)
[2021-07-04] MEDS ORDERED: FOLIC ACID 1 MG TABLET PO SCH (09:00)
[2021-07-06] MEDS ORDERED: CHOLECALCIFEROL (VITAMIN D3) 50,000 UNIT CAPSULE PO SCH (09:00)
== END 2021-07-01 12:30 | disposition home or self-care (01) | DRG 189 ==
LOC: ER 08:23 → ER HOLD 10:28 → 1 SOUTH 11:33
PROVIDERS: ADMIT Internal Medicine; ATTEND Internal Medicine
DX: J96.00 Acute respiratory failure, unspecified whether with hypoxia or hypercapnia (principal); J44.1 Chronic obstructive pulmonary disease with (acute) exacerbation; E87.0 Hyperosmolality and hypernatremia; I24.8 Other forms of acute ischemic heart disease; J44.0 Chronic obstructive pulmonary disease with (acute) lower respiratory infection; Z20.822 Contact with and (suspected) exposure to COVID-19; E03.9 Hypothyroidism, unspecified; E05.00 Thyrotoxicosis with diffuse goiter without thyrotoxic crisis or storm; E11.9 Type 2 diabetes mellitus without complications; E78.5 Hyperlipidemia, unspecified; E87.6 Hypokalemia; F10.129 Alcohol abuse with intoxication, unspecified; F17.210 Nicotine dependence, cigarettes, uncomplicated; I10 Essential (primary) hypertension; Y90.8 Blood alcohol level of 240 mg/100 ml or more; Z63.4 Disappearance and death of family member; Z80.0 Family history of malignant neoplasm of digestive organs; Z80.7 Family history of other malignant neoplasms of lymphoid, hematopoietic and related tissues; Z90.49 Acquired absence of other specified parts of digestive tract; R07.89 Other chest pain; D69.6 Thrombocytopenia, unspecified; J40 Bronchitis, not specified as acute or chronic
CPT/HCPCS: 36415; 71046; 80048; 80053; 80061; 81001; 82803; 82947; 83605; 83880; 84484; 85025; 85027; 87428; 93005; 94640; 96361; 96374; 96375; 99406; G0480; J1815; J1956; J2270; J2405; J2920; J2930; Q0164; U0003; 99285-25; J7030